=== PATIENT | female | born 1930 | race Caucasian/White ===

== ENCOUNTER 2018-03-01 13:43 | Inpatient (IN) | payer MEDICARE, OTHER ==
[2018-03-01 15:38] LABS: ABNORMAL IP MESSAGE 1; IMMATURE GRANS #M 0.02 10^3/ul; IMMATURE GRANS % (M) 0.3 %; RED CELL DISTRIBUTION WIDTH 16.9 % (11.5-14.5)
[2018-03-01 15:41] LABS: WHITE BLOOD COUNT 7.5 10^3/ul (4.8-10.8)
[2018-03-01 15:41] LABS: MEAN CORPUSCULAR HEMOGLOBIN 28.3 pg (29.0-33.0); MEAN CORPUSCULAR VOLUME 94.4 fl (82.0-101.0); PLATELET COUNT 209 10^3/UL (140-415); RED BLOOD COUNT 2.33 10^6/ul (4.20-5.40)
[2018-03-01 15:45] LABS: ADD MAN DIFF? YES; HEMOGLOBIN 6.6 g/dl (12.0-16.0); PATH REVIEW? YES; POSITIVE DIFF @See below
[2018-03-01 15:55] LABS: ALANINE AMINOTRANSFERASE 9 IU/L (13-69); ALBUMIN 3.6 g/dl (3.3-4.9); ALKALINE PHOSPHATASE 33 IU/L (42-121); ANION GAP 16 (8-16); ASPARTATE AMINO TRANSFERASE 13 IU/L (15-46); BLOOD UREA NITROGEN 33 mg/dl (7-20); CALCIUM 9.3 mg/dl (8.4-10.2); CARBON DIOXIDE 26 mmol/L (21-31); CHLORIDE 106 mmol/L (97-110); CREATININE 1.23 mg/dl (0.44-1.00); GLUCOSE 123 mg/dl (70-220); INR 1.02; POTASSIUM 4.1 mmol/L (3.5-5.1); PROTIME 13.5 Sec (11.9-14.9); PT RATIO 1.1; SODIUM 144 mmol/L (135-144); TOTAL PROTEIN 6.6 g/dl (6.1-8.1)
[2018-03-01 15:56] LABS: PARTIAL THROMBOPLASTIN TIME 34.9 Sec (25.0-35.0)
[2018-03-01 16:11] LABS: BASOPHIL # 0.1 10^3/ul (0.0-0.1); EOSINOPHILS # 0.4 10^3/ul (0.0-0.5); LYMPHOCYTES # 2.4 10^3/ul (0.8-2.9); MONOCYTE # 0.5 10^3/ul (0.3-0.9); MONOCYTES % 7.1 % (0.0-11.0); NEUTROPHIL # 4.1 10^3/ul (1.6-7.5); NEUTROPHILS % 54.4 % (39.0-77.0); NUCLEATED RED BLOOD CELLS% 0.7 /100WBC (0.0-0.0)
[2018-03-01] MEDS ORDERED: DOCUSATE SODIUM 100 MG CAP PO (19:30)
[2018-03-01] MEDS ORDERED: ONDANSETRON 4 MG INJ IV (19:30)
[2018-03-01] MEDS ORDERED: NACL 0.9% 3 ML SYG IV (19:30)
[2018-03-01] MEDS ORDERED: GLUCAGON 1 MG INJ IM (20:00)
[2018-03-01] MEDS ORDERED: GLUCOSE GEL 15 GRAM TUBE BUCCAL (20:00)
[2018-03-01] MEDS ORDERED: GLUCOSE GEL 15 GRAM TUBE PO ×2 (20:00)
[2018-03-01] MEDS ORDERED: DEXTROSE 50% 50 ML SYRINGE IV ×2 (20:00)
[2018-03-01] MEDS: D5W-0.45 NACL + KCL 20 MEQ 1,000 ML IV (20:15)
[2018-03-01] MEDS: INSULIN ASPART [NOVOLOG] 3 ML PEN SC (21:00)
[2018-03-01 23:09] LABS: IMMEDIATE SPIN CROSSMATCH 1 4
[2018-03-02] MEDS: INSULIN ASPART [NOVOLOG] 3 ML PEN SC ×4 (01:00→11:30)
[2018-03-02] MEDS: ACCU-CHEK XX (01:00)
[2018-03-02] MEDS: morphine 2 MG INJ IV (03:17)
[2018-03-02] MEDS: D5W-0.45 NACL + KCL 20 MEQ 1,000 ML IV (05:12)
[2018-03-02] MEDS: PANTOPRAZOLE 40 MG INJ IV (06:07)
[2018-03-02 09:25] LABS: ADD MAN DIFF? NO
[2018-03-02 09:28] LABS: WHITE BLOOD COUNT 7.3 10^3/ul (4.8-10.8)
[2018-03-02 09:28] LABS: BASOPHIL # 0.1 10^3/ul (0.0-0.1); BASOPHILS % 0.7 % (0.0-2.0); EOSINOPHILS # 0.3 10^3/ul (0.0-0.5); EOSINOPHILS % 3.6 % (0.0-7.0); HEMATOCRIT 27.9 % (37.0-47.0); HEMOGLOBIN 8.9 g/dl (12.0-16.0); IMMATURE GRANS #M 0.01 10^3/ul; IMMATURE GRANS % (M) 0.1 %; LYMPHOCYTES # 1.1 10^3/ul (0.8-2.9); LYMPHOCYTES % 15.6 % (15.0-51.0); MEAN CORPUSCULAR HEMOGLOBIN 28.7 pg (29.0-33.0); MEAN CORPUSCULAR HGB CONC 31.9 g/dl (32.0-37.0); MEAN PLATELET VOLUME 10.3 fl (7.4-10.4); MONOCYTE # 0.5 10^3/ul (0.3-0.9); MONOCYTES % 6.1 % (0.0-11.0); NEUTROPHIL # 5.4 10^3/ul (1.6-7.5); NEUTROPHILS % 73.9 % (39.0-77.0); PLATELET COUNT 202 10^3/UL (140-415); RED CELL DISTRIBUTION WIDTH 16.6 % (11.5-14.5)
[2018-03-02 10:05] LABS: IRON 151 ug/dl (35-150)
[2018-03-02 10:10] LABS: ANION GAP 12 (8-16); BLOOD UREA NITROGEN 23 mg/dl (7-20); CALCIUM 8.6 mg/dl (8.4-10.2); CARBON DIOXIDE 24 mmol/L (21-31); CHLORIDE 109 mmol/L (97-110); CREATININE 0.95 mg/dl (0.44-1.00); GLUCOSE 128 mg/dl (70-220); MAGNESIUM 1.8 mg/dl (1.7-2.5); PHOSPHORUS 3.7 mg/dl (2.5-4.9); POTASSIUM 3.4 mmol/L (3.5-5.1); SODIUM 142 mmol/L (135-144)
[2018-03-02 10:22] LABS: % IRON SATURATION 45 % SAT (22-52); TOTAL IRON BINDING CAPACITY 338 ug/dl (241-421)
[2018-03-02 10:37] LABS: FERRITIN 12.3 ng/ml (11.1-264.0)
[2018-03-02 15:51] LABS: HEMOGLOBIN A1C 5.4 % (0-5.9)
== END 2018-03-02 15:19 | disposition home or self-care (01) | DRG 812 ==
LOC: E/R 13:43 → 6WM 16:34
PROC: 30233N1 Transfusion of Nonautologous Red Blood Cells into Peripheral Vein, Percutaneous Approach (ICD-10-PCS; principal; 2018-03-01)
DX: D50.9 Iron deficiency anemia, unspecified (principal); I25.10 Atherosclerotic heart disease of native coronary artery without angina pectoris; I35.0 Nonrheumatic aortic (valve) stenosis; I27.20 Pulmonary hypertension, unspecified; N18.9 Chronic kidney disease, unspecified; F03.90 Unspecified dementia, unspecified severity, without behavioral disturbance, psychotic disturbance, mood disturbance, and anxiety; Z95.1 Presence of aortocoronary bypass graft; Z79.82 Long term (current) use of aspirin
CPT/HCPCS: 36415; 36430; 80048; 80053; 82728; 82962; 83036; 83540; 83735; 84100; 85025; 85610; 85730; 86850; 86900; 86901; 86920; 93005; 99285-25

== ENCOUNTER 2018-03-29 13:26 | Inpatient (IN) | payer MEDICARE, OTHER ==
[2018-03-29 15:07] LABS: ADD MAN DIFF? NO
[2018-03-29 15:13] LABS: BASOPHILS % 0.6 % (0.0-2.0); EOSINOPHILS # 0.3 10^3/ul (0.0-0.5); EOSINOPHILS % 4.3 % (0.0-7.0); HEMATOCRIT 23.8 % (37.0-47.0); HEMOGLOBIN 7.3 g/dl (12.0-16.0); LYMPHOCYTES # 2.2 10^3/ul (0.8-2.9); LYMPHOCYTES % 32.8 % (15.0-51.0); MEAN CORPUSCULAR HEMOGLOBIN 28.1 pg (29.0-33.0); MEAN CORPUSCULAR HGB CONC 30.7 g/dl (32.0-37.0); MEAN CORPUSCULAR VOLUME 91.5 fl (82.0-101.0); MEAN PLATELET VOLUME 10.4 fl (7.4-10.4); MONOCYTE # 0.5 10^3/ul (0.3-0.9); MONOCYTES % 7.8 % (0.0-11.0); NEUTROPHIL # 3.7 10^3/ul (1.6-7.5); NEUTROPHILS % 54.2 % (39.0-77.0); PLATELET COUNT 248 10^3/UL (140-415); RED CELL DISTRIBUTION WIDTH 15.6 % (11.5-14.5)
[2018-03-29 15:13] LABS: WHITE BLOOD COUNT 6.8 10^3/ul (4.8-10.8)
[2018-03-29 15:40] LABS: INR 1.03; PARTIAL THROMBOPLASTIN TIME 35.9 Sec (25.0-35.0); PROTIME 13.6 Sec (11.9-14.9); PT RATIO 1.1
[2018-03-29 15:46] LABS: ALANINE AMINOTRANSFERASE 18 IU/L (13-69); ALBUMIN 3.6 g/dl (3.3-4.9); ALBUMIN/GLOBULIN RATIO 1.16; ALKALINE PHOSPHATASE 38 IU/L (42-121); ANION GAP 14 (8-16); ASPARTATE AMINO TRANSFERASE 19 IU/L (15-46); BILIRUBIN,INDIRECT 0.2 mg/dl (0-1.1); BILIRUBIN,TOTAL 0.2 mg/dl (0.2-1.3); BLOOD UREA NITROGEN 23 mg/dl (7-20); CALCIUM 8.3 mg/dl (8.4-10.2); CARBON DIOXIDE 21 mmol/L (21-31); CHLORIDE 111 mmol/L (97-110); CREATININE 1.25 mg/dl (0.44-1.00); GLUCOSE 107 mg/dl (70-220); POTASSIUM 3.6 mmol/L (3.5-5.1); SODIUM 142 mmol/L (135-144); TOTAL PROTEIN 6.7 g/dl (6.1-8.1)
[2018-03-29 15:57] LABS: TROPONIN-I < 0.012 ng/ml (0.000-0.120)
[2018-03-29 16:54] LABS: RETICULOCYTE COUNT # 0.115 X10^6 (0.020-0.110); RETICULOCYTE COUNT % 4.4 % (0.5-1.5)
[2018-03-29 16:54] LABS: RETICULOCYTE RBC 2.61
[2018-03-29 17:00] LABS: LACTATE DEHYDROGENASE 459 IU/L (313-618)
[2018-03-29] MEDS ORDERED: NACL 0.9% 3 ML SYG IV (17:00)
[2018-03-29] MEDS ORDERED: DOCUSATE SODIUM 100 MG CAP PO (17:00)
[2018-03-29] MEDS ORDERED: MAGNESIUM HYDROXIDE 30ML CUP PO (17:00)
[2018-03-29] MEDS ORDERED: ONDANSETRON 4 MG INJ IV (17:00)
[2018-03-29] MEDS ORDERED: BISACODYL (EC) 5 MG TAB PO ×2 (17:00)
[2018-03-29 17:06] LABS: TOTAL IRON BINDING CAPACITY 328 ug/dl (241-421)
[2018-03-29 17:12] LABS: % IRON SATURATION 9 % SAT (22-52); IRON 29 ug/dl (35-150)
[2018-03-29] MEDS ORDERED: GLUCAGON 1 MG INJ IM (17:30)
[2018-03-29] MEDS ORDERED: GLUCOSE GEL 15 GRAM TUBE PO ×2 (17:30)
[2018-03-29] MEDS ORDERED: GLUCOSE GEL 15 GRAM TUBE BUCCAL (17:30)
[2018-03-29] MEDS ORDERED: DEXTROSE 50% 50 ML SYRINGE IV ×2 (17:30)
[2018-03-29 17:35] LABS: FERRITIN 9.3 ng/ml (11.1-264.0)
[2018-03-29] MEDS: INSULIN ASPART [NOVOLOG] 3 ML PEN SC ×2 (18:00→22:10)
[2018-03-29] MEDS: SOD CHLORIDE 0.9% 1,000 ML IV (18:10)
[2018-03-29] MEDS: ARFORMOTEROL TARTRATE 15MCG/2 ML AMP INH (20:45)
[2018-03-29] MEDS: BUDESONIDE (NEB) 0.5MG/2ML AMP INH (20:45)
[2018-03-29] MEDS ORDERED: MEGESTROL 40 MG TAB PO (21:00)
[2018-03-29] MEDS: MEGESTROL 40 MG TAB PO (22:04)
[2018-03-29] MEDS: QUETIAPINE 25 MG TAB PO (22:04)
[2018-03-29] MEDS: DOCUSATE SODIUM 250 MG CAP PO (22:05)
[2018-03-29] MEDS: ATORVASTATIN 10 MG TAB PO (22:07)
[2018-03-29] MEDS: CALCIUM CARBONATE 1.25 GM TAB PO (22:08)
[2018-03-30] MEDS: ACCU-CHEK XX (01:53)
[2018-03-30] MEDS: ACETAMINOPHEN 325 MG TAB PO (02:52)
[2018-03-30] MEDS: PANTOPRAZOLE (EC) 40 MG TAB PO (05:36)
[2018-03-30] MEDS: traMADol 50 MG TAB PO ×2 (05:37→10:59)
[2018-03-30 07:41] LABS: ADD MAN DIFF? NO
[2018-03-30 07:50] LABS: BASOPHIL # 0.1 10^3/ul (0.0-0.1); BASOPHILS % 0.7 % (0.0-2.0); EOSINOPHILS # 0.2 10^3/ul (0.0-0.5); EOSINOPHILS % 3.2 % (0.0-7.0); HEMATOCRIT 26.5 % (37.0-47.0); HEMOGLOBIN 8.2 g/dl (12.0-16.0); LYMPHOCYTES # 1.9 10^3/ul (0.8-2.9); LYMPHOCYTES % 26.8 % (15.0-51.0); MEAN CORPUSCULAR HEMOGLOBIN 27.9 pg (29.0-33.0); MEAN CORPUSCULAR HGB CONC 30.9 g/dl (32.0-37.0); MEAN CORPUSCULAR VOLUME 90.1 fl (82.0-101.0); MEAN PLATELET VOLUME 9.9 fl (7.4-10.4); MONOCYTE # 0.6 10^3/ul (0.3-0.9); MONOCYTES % 7.9 % (0.0-11.0); NEUTROPHIL # 4.3 10^3/ul (1.6-7.5); NEUTROPHILS % 61.1 % (39.0-77.0); PLATELET COUNT 209 10^3/UL (140-415); RED BLOOD COUNT 2.94 10^6/ul (4.20-5.40); RED CELL DISTRIBUTION WIDTH 15.9 % (11.5-14.5)
[2018-03-30 07:50] LABS: WHITE BLOOD COUNT 7.1 10^3/ul (4.8-10.8)
[2018-03-30] MEDS: ARFORMOTEROL TARTRATE 15MCG/2 ML AMP INH ×2 (07:57→20:00)
[2018-03-30] MEDS: BUDESONIDE (NEB) 0.5MG/2ML AMP INH ×2 (07:57→20:29)
[2018-03-30] MEDS: INSULIN ASPART [NOVOLOG] 3 ML PEN SC ×4 (08:00→20:53)
[2018-03-30] MEDS: ASCORBIC ACID 500 MG TAB PO (08:51)
[2018-03-30] MEDS: ASPIRIN 81 MG TAB PO (08:51)
[2018-03-30] MEDS: CALCIUM CARBONATE 1.25 GM TAB PO ×2 (08:51→20:50)
[2018-03-30] MEDS: LOSARTAN 25 MG TAB PO (08:52)
[2018-03-30] MEDS: ISOSORBIDE MONONITRATE(SR)30 MG TAB PO (08:53)
[2018-03-30] MEDS: SPIRONOLACTONE 25 MG TAB PO (08:53)
[2018-03-30] MEDS: QUETIAPINE 25 MG TAB PO ×2 (08:54→20:50)
[2018-03-30] MEDS: DULOXETINE 30 MG CAP DR PO (08:54)
[2018-03-30] MEDS: DOCUSATE SODIUM 250 MG CAP PO ×2 (08:54→20:50)
[2018-03-30] MEDS: MEGESTROL 40 MG TAB PO ×2 (08:54→20:50)
[2018-03-30] MEDS: MEMANTINE 10 MG TAB PO (08:54)
[2018-03-30] MEDS: FUROSEMIDE 40 MG TAB PO (08:54)
[2018-03-30] MEDS: OLOPATADINE 0.2% (ONCE A DAY) OPHTH DROP 2.5 ML BOTH EYES (08:55)
[2018-03-30 08:59] LABS: ALANINE AMINOTRANSFERASE 14 IU/L (13-69); ALBUMIN 3.2 g/dl (3.3-4.9); ALBUMIN/GLOBULIN RATIO 1.14; ALKALINE PHOSPHATASE 36 IU/L (42-121); ANION GAP 10 (8-16); ASPARTATE AMINO TRANSFERASE 17 IU/L (15-46); BILIRUBIN,INDIRECT 0.5 mg/dl (0-1.1); BILIRUBIN,TOTAL 0.5 mg/dl (0.2-1.3); BLOOD UREA NITROGEN 16 mg/dl (7-20); CALCIUM 8.3 mg/dl (8.4-10.2); CARBON DIOXIDE 21 mmol/L (21-31); CHLORIDE 114 mmol/L (97-110); GLUCOSE 96 mg/dl (70-220); MAGNESIUM 2.1 mg/dl (1.7-2.5); POTASSIUM 3.8 mmol/L (3.5-5.1); SODIUM 141 mmol/L (135-144)
[2018-03-30 09:26] LABS: HEMOGLOBIN A1C 5.3 % (0-5.9)
[2018-03-30] MEDS: SOD CHLORIDE 0.9% 100 ML (14:16)
[2018-03-30] MEDS: IODIXANOL LOCM 100 ML BTL (14:17)
[2018-03-30 14:39] LABS: IMMEDIATE SPIN CROSSMATCH 1 2
[2018-03-30] MEDS: BISACODYL (EC) 5 MG TAB PO (15:15)
[2018-03-30] MEDS: DIGOXIN 0.125 MG TAB PO (15:16)
[2018-03-30] MEDS: MAGNESIUM CITRATE 300 ML BTL PO (17:43)
[2018-03-30] MEDS: POLYETHYLENE GLYCOL 3350 119 GM POWDER PO (18:30)
[2018-03-30 19:26] LABS: TROPONIN-I < 0.012 ng/ml (0.000-0.120)
[2018-03-30] MEDS: ATORVASTATIN 10 MG TAB PO (20:50)
[2018-03-31 01:50] LABS: TROPONIN-I < 0.012 ng/ml (0.000-0.120)
[2018-03-31] MEDS: ACCU-CHEK XX (02:00)
[2018-03-31] MEDS: DEXTROSE 5%-0.45% NACL 1,000 ML IV (03:10)
[2018-03-31] MEDS: PANTOPRAZOLE (EC) 40 MG TAB PO (06:00)
[2018-03-31] MEDS: POLYETHYLENE GLYCOL 3350 119 GM POWDER PO (06:20)
[2018-03-31] MEDS ORDERED: LIDOCAINE 100 MG SYRINGE (07:00)
[2018-03-31 07:57] LABS: ADD MAN DIFF? NO
[2018-03-31 07:59] LABS: BASOPHILS % 0.6 % (0.0-2.0); EOSINOPHILS # 0.3 10^3/ul (0.0-0.5); EOSINOPHILS % 4.2 % (0.0-7.0); HEMATOCRIT 28.9 % (37.0-47.0); HEMOGLOBIN 9.2 g/dl (12.0-16.0); LYMPHOCYTES # 1.8 10^3/ul (0.8-2.9); LYMPHOCYTES % 28.1 % (15.0-51.0); MEAN CORPUSCULAR HEMOGLOBIN 27.7 pg (29.0-33.0); MEAN CORPUSCULAR HGB CONC 31.8 g/dl (32.0-37.0); MEAN PLATELET VOLUME 9.9 fl (7.4-10.4); MONOCYTE # 0.5 10^3/ul (0.3-0.9); MONOCYTES % 8.1 % (0.0-11.0); NEUTROPHIL # 3.8 10^3/ul (1.6-7.5); NEUTROPHILS % 58.7 % (39.0-77.0); PLATELET COUNT 230 10^3/UL (140-415); RED BLOOD COUNT 3.32 10^6/ul (4.20-5.40); RED CELL DISTRIBUTION WIDTH 15.5 % (11.5-14.5)
[2018-03-31 07:59] LABS: WHITE BLOOD COUNT 6.4 10^3/ul (4.8-10.8)
[2018-03-31] MEDS: INSULIN ASPART [NOVOLOG] 3 ML PEN SC ×4 (08:00→20:38)
[2018-03-31] MEDS: BUDESONIDE (NEB) 0.5MG/2ML AMP INH ×2 (08:28→21:25)
[2018-03-31] MEDS: ARFORMOTEROL TARTRATE 15MCG/2 ML AMP INH ×2 (08:28→21:25)
[2018-03-31] MEDS: BISACODYL (EC) 5 MG TAB PO (08:44)
[2018-03-31] MEDS: MEMANTINE 10 MG TAB PO (08:53)
[2018-03-31] MEDS: DULOXETINE 30 MG CAP DR PO (08:53)
[2018-03-31 08:54] LABS: CHOLESTEROL 101 mg/dl (100-200)
[2018-03-31 08:54] LABS: CHOL/HDL RATIO 4.2 RATIO; HDL CHOLESTEROL 24 mg/dl (33-92); LDL CHOLESTEROL,CALCULATED 58 mg/dl; TRIGLYCERIDES 95 mg/dl (0-149)
[2018-03-31] MEDS: ASCORBIC ACID 500 MG TAB PO (08:54)
[2018-03-31] MEDS: CALCIUM CARBONATE 1.25 GM TAB PO ×2 (08:54→21:16)
[2018-03-31] MEDS: SPIRONOLACTONE 25 MG TAB PO (08:54)
[2018-03-31] MEDS: LOSARTAN 25 MG TAB PO (08:54)
[2018-03-31] MEDS: ISOSORBIDE MONONITRATE(SR)30 MG TAB PO (08:54)
[2018-03-31] MEDS: FUROSEMIDE 40 MG TAB PO (08:54)
[2018-03-31] MEDS: OLOPATADINE 0.2% (ONCE A DAY) OPHTH DROP 2.5 ML BOTH EYES (08:55)
[2018-03-31 08:56] LABS: ANION GAP 10 (8-16); BLOOD UREA NITROGEN 13 mg/dl (7-20); CALCIUM 8.9 mg/dl (8.4-10.2); CARBON DIOXIDE 25 mmol/L (21-31); CHLORIDE 111 mmol/L (97-110); CREATININE 0.96 mg/dl (0.44-1.00); GLUCOSE 99 mg/dl (70-220); MAGNESIUM 2.3 mg/dl (1.7-2.5); PHOSPHORUS 3.2 mg/dl (2.5-4.9); POTASSIUM 3.2 mmol/L (3.5-5.1); SODIUM 143 mmol/L (135-144)
[2018-03-31 09:00] LABS: URIC ACID 6.3 mg/dl (3.1-7.9)
[2018-03-31] MEDS: ASPIRIN 81 MG TAB PO (09:00)
[2018-03-31] MEDS: MEGESTROL 40 MG TAB PO ×2 (09:00→21:16)
[2018-03-31] MEDS: QUETIAPINE 25 MG TAB PO ×2 (09:00→21:17)
[2018-03-31] MEDS: DOCUSATE SODIUM 250 MG CAP PO ×2 (09:00→21:00)
[2018-03-31 09:06] LABS: TROPONIN-I < 0.012 ng/ml (0.000-0.120)
[2018-03-31] MEDS: DIGOXIN 0.125 MG TAB PO (13:00)
[2018-03-31] MEDS: POTASSIUM CHLORIDE 100 ML IVPB ×3 (13:21→15:00)
[2018-03-31 13:40] LABS: OCCULT BLOOD STOOL NEGATIVE (NEGATIVE)
[2018-03-31 16:47] LABS: HAPTOGLOBIN 262 mg/dL (43-212)
[2018-03-31] MEDS: FENTAnyl 50 MCG/ML VIAL (17:20)
[2018-03-31] MEDS: PROPOFOL 40 ML (17:20)
[2018-03-31] MEDS: ATORVASTATIN 10 MG TAB PO (21:16)
[2018-04-01] MEDS: POTASSIUM CHLORIDE 100 ML IVPB
[2018-04-01] MEDS: ACCU-CHEK XX (02:00)
[2018-04-01 05:40] LABS: ADD MAN DIFF? NO
[2018-04-01 05:41] LABS: BASOPHIL # 0.1 10^3/ul (0.0-0.1); BASOPHILS % 0.6 % (0.0-2.0); EOSINOPHILS # 0.3 10^3/ul (0.0-0.5); EOSINOPHILS % 3.8 % (0.0-7.0); HEMATOCRIT 29.1 % (37.0-47.0); HEMOGLOBIN 9.3 g/dl (12.0-16.0); LYMPHOCYTES # 2.4 10^3/ul (0.8-2.9); MEAN CORPUSCULAR HEMOGLOBIN 28.1 pg (29.0-33.0); MEAN CORPUSCULAR VOLUME 87.9 fl (82.0-101.0); MEAN PLATELET VOLUME 9.8 fl (7.4-10.4); MONOCYTE # 0.7 10^3/ul (0.3-0.9); MONOCYTES % 8.1 % (0.0-11.0); NEUTROPHIL # 4.8 10^3/ul (1.6-7.5); NEUTROPHILS % 58.1 % (39.0-77.0); PLATELET COUNT 239 10^3/UL (140-415); RED BLOOD COUNT 3.31 10^6/ul (4.20-5.40); RED CELL DISTRIBUTION WIDTH 15.4 % (11.5-14.5)
[2018-04-01 05:41] LABS: WHITE BLOOD COUNT 8.3 10^3/ul (4.8-10.8)
[2018-04-01] MEDS: PANTOPRAZOLE (EC) 40 MG TAB PO (06:37)
[2018-04-01 06:42] LABS: ANION GAP 12 (8-16); BLOOD UREA NITROGEN 10 mg/dl (7-20); CALCIUM 9.2 mg/dl (8.4-10.2); CARBON DIOXIDE 24 mmol/L (21-31); CHLORIDE 112 mmol/L (97-110); CREATININE 1.02 mg/dl (0.44-1.00); GLUCOSE 92 mg/dl (70-220); MAGNESIUM 2.1 mg/dl (1.7-2.5); PHOSPHORUS 3.9 mg/dl (2.5-4.9); POTASSIUM 4.3 mmol/L (3.5-5.1); SODIUM 144 mmol/L (135-144)
[2018-04-01] MEDS: BUDESONIDE (NEB) 0.5MG/2ML AMP INH (08:00)
[2018-04-01] MEDS: INSULIN ASPART [NOVOLOG] 3 ML PEN SC ×2 (08:00→12:00)
[2018-04-01] MEDS: ARFORMOTEROL TARTRATE 15MCG/2 ML AMP INH (08:49)
[2018-04-01] MEDS: CALCIUM CARBONATE 1.25 GM TAB PO (09:33)
[2018-04-01] MEDS: ASCORBIC ACID 500 MG TAB PO (09:33)
[2018-04-01] MEDS: DULOXETINE 30 MG CAP DR PO (09:33)
[2018-04-01] MEDS: ASPIRIN 81 MG TAB PO (09:33)
[2018-04-01] MEDS: MEMANTINE 10 MG TAB PO (09:34)
[2018-04-01] MEDS: QUETIAPINE 25 MG TAB PO (09:34)
[2018-04-01] MEDS: MEGESTROL 40 MG TAB PO (09:34)
[2018-04-01] MEDS: FUROSEMIDE 40 MG TAB PO (09:34)
[2018-04-01] MEDS: DOCUSATE SODIUM 250 MG CAP PO (09:34)
[2018-04-01] MEDS: ISOSORBIDE MONONITRATE(SR)30 MG TAB PO (09:35)
[2018-04-01] MEDS: LOSARTAN 25 MG TAB PO (09:35)
[2018-04-01] MEDS: OLOPATADINE 0.2% (ONCE A DAY) OPHTH DROP 2.5 ML BOTH EYES (09:36)
[2018-04-01] MEDS: SPIRONOLACTONE 25 MG TAB PO (09:36)
[2018-04-01] MEDS ORDERED: DOCUSATE SODIUM 100 MG CAP PO (13:30)
== END 2018-04-01 15:30 | disposition home or self-care (01) | DRG 812 ==
LOC: E/R 13:26 → 2NE 15:58
PROVIDERS: Internal Medicine; Pediatrics Neonatal-Perinatal Medicine
PROC: 0DB68ZX Excision of Stomach, Via Natural or Artificial Opening Endoscopic, Diagnostic (ICD-10-PCS; principal; 2018-03-31 16:30)
PROC: 0DJD8ZZ Inspection of Lower Intestinal Tract, Via Natural or Artificial Opening Endoscopic (ICD-10-PCS; 2018-03-31 16:30)
PROC: 30233N1 Transfusion of Nonautologous Red Blood Cells into Peripheral Vein, Percutaneous Approach (ICD-10-PCS; 2018-03-31 16:30)
DX: D50.9 Iron deficiency anemia, unspecified (principal); N17.9 Acute kidney failure, unspecified; I25.10 Atherosclerotic heart disease of native coronary artery without angina pectoris; I35.0 Nonrheumatic aortic (valve) stenosis; F41.9 Anxiety disorder, unspecified; F32.9 Major depressive disorder, single episode, unspecified; F03.90 Unspecified dementia, unspecified severity, without behavioral disturbance, psychotic disturbance, mood disturbance, and anxiety; E11.9 Type 2 diabetes mellitus without complications; J44.9 Chronic obstructive pulmonary disease, unspecified; G89.29 Other chronic pain; E78.5 Hyperlipidemia, unspecified; K29.70 Gastritis, unspecified, without bleeding; M25.562 Pain in left knee; M25.561 Pain in right knee; K57.30 Diverticulosis of large intestine without perforation or abscess without bleeding; K64.8 Other hemorrhoids; I27.20 Pulmonary hypertension, unspecified; Z79.82 Long term (current) use of aspirin; Z95.5 Presence of coronary angioplasty implant and graft
CPT/HCPCS: 36415; 36430; 71045; 73562-50; 74177; 80048; 80053; 80061; 82270; 82728; 82962; 83010; 83036; 83540; 83615; 83735; 84100; 84443; 84484; 84560; 85025; 85045; 85610; 85730; 86850; 86900; 86901; 86920; 88305; 88312; 93005; 93306; 93970; 94640; 94664; 99285-25; G0378

== ENCOUNTER 2018-06-10 02:32 | Inpatient (IN) | payer MEDICARE, OTHER ==
[2018-06-10 03:20] LABS: ABNORMAL IP MESSAGE 1; HEMATOCRIT 18.6 % (37.0-47.0); MEAN CORPUSCULAR HEMOGLOBIN 29.6 pg (29.0-33.0); MEAN CORPUSCULAR HGB CONC 30.1 g/dl (32.0-37.0); MEAN CORPUSCULAR VOLUME 98.4 fl (82.0-101.0); MEAN PLATELET VOLUME 10.2 fl (7.4-10.4); PLATELET COUNT 192 10^3/UL (140-415); RED BLOOD COUNT 1.89 10^6/ul (4.20-5.40); RED CELL DISTRIBUTION WIDTH 17.4 % (11.5-14.5)
[2018-06-10 03:20] LABS: WHITE BLOOD COUNT 8.5 10^3/ul (4.8-10.8)
[2018-06-10 03:22] LABS: ADD MAN DIFF? YES; POSITIVE DIFF @See below
[2018-06-10 03:23] LABS: HEMOGLOBIN 5.6 g/dl (12.0-16.0)
[2018-06-10 03:38] LABS: ALANINE AMINOTRANSFERASE 15 IU/L (13-69); ALBUMIN 3.2 g/dl (3.3-4.9); ALBUMIN/GLOBULIN RATIO 1.18; ALKALINE PHOSPHATASE 36 IU/L (42-121); ANION GAP 11 (5-13); ASPARTATE AMINO TRANSFERASE 11 IU/L (15-46); BILIRUBIN,INDIRECT 0.2 mg/dl (0-1.1); BILIRUBIN,TOTAL 0.2 mg/dl (0.2-1.3); BLOOD UREA NITROGEN 23 mg/dl (7-20); CALCIUM 8.2 mg/dl (8.4-10.2); CARBON DIOXIDE 21 mmol/L (21-31); CHLORIDE 109 mmol/L (97-110); CREATININE 1.23 mg/dl (0.44-1.00); GLUCOSE 128 mg/dl (70-220); POTASSIUM 3.2 mmol/L (3.5-5.1); SODIUM 141 mmol/L (135-144); TOTAL PROTEIN 5.9 g/dl (6.1-8.1)
[2018-06-10 03:40] LABS: INR 1.08; PROTIME 14.1 Sec (11.9-14.9); PT RATIO 1.1
[2018-06-10 03:41] LABS: PARTIAL THROMBOPLASTIN TIME 32.8 Sec (23.0-35.0)
[2018-06-10 03:49] LABS: TROPONIN-I < 0.012 ng/ml (0.000-0.120)
[2018-06-10] MEDS ORDERED: ONDANSETRON 4 MG INJ IV ×2 (04:00→06:30)
[2018-06-10] MEDS ORDERED: ACETAMINOPHEN 325 MG TAB PO ×2 (04:00→06:30)
[2018-06-10 04:04] LABS: ANISOCYTOSIS 1+ (0-0); BAND NEUTROPHILS #M 0.2 10^3/ul (0.0-0.6); BAND NEUTROPHILS % (M) 3 % (0-4); BASOPHIL #M 0.2 10^3/ul (0.0-0.0); BASOPHILS % (M) 3 % (0-2); EOSINOPHILS % (M) 1 % (0-7); LYMPHOCYTES #M 1.7 10^3/ul (0.8-2.9); LYMPHOCYTES % (M) 21 % (15-51); MONOCYTE #M 0.4 10^3/ul (0.3-0.9); MONOCYTES % (M) 5 % (0-11); MYELOCYTES % (M) 1 % (0-0); PLATELET ESTIMATE NORMAL; POLYCHROMASIA 1+ (0-0); PROMYELOCYTES % (M) 1 % (0-0); SEG NEUT #M 5.5 10^3/ul (1.6-7.5); SEGMENTED NEUTROPHILS (M) % 65 % (39-77); SMUDGE%M 15 % (0-0)
[2018-06-10] MEDS: morphine 4 MG/ML VIAL IV (04:08)
[2018-06-10] MEDS: ONDANSETRON 4 MG INJ IV (04:08)
[2018-06-10] MEDS ORDERED: NACL 0.9% 3 ML SYG IV (06:30)
[2018-06-10] MEDS ORDERED: BISACODYL (EC) 5 MG TAB PO (06:30)
[2018-06-10] MEDS ORDERED: ALBUTEROL HFA 8 GM INHALER INH (06:30)
[2018-06-10] MEDS ORDERED: ACETAMINOPHEN/CODEINE #3 TAB PO (06:30)
[2018-06-10 07:53] LABS: IMMEDIATE SPIN CROSSMATCH 1 4
[2018-06-10] MEDS ORDERED: ASPIRIN (EC) 81 MG TAB PO (09:00)
[2018-06-10] MEDS: ISOSORBIDE MONONITRATE(SR)30 MG TAB PO (09:00)
[2018-06-10] MEDS: LOSARTAN 25 MG TAB PO (09:00)
[2018-06-10] MEDS: LINAGLIPTIN 5 MG TABLET PO (09:02)
[2018-06-10] MEDS: DULOXETINE 30 MG CAP DR PO (09:03)
[2018-06-10] MEDS: MEMANTINE 10 MG TAB PO (09:03)
[2018-06-10] MEDS: PANTOPRAZOLE (EC) 40 MG TAB PO (09:03)
[2018-06-10] MEDS: DOCUSATE SODIUM 250 MG CAP PO ×2 (09:03→20:25)
[2018-06-10] MEDS: MEGESTROL 40 MG TAB PO ×2 (09:03→20:25)
[2018-06-10] MEDS: FUROSEMIDE 20 MG TAB PO (09:03)
[2018-06-10] MEDS: SOD CHLORIDE 0.9% 250 ML IV (09:05)
[2018-06-10] MEDS: ARFORMOTEROL TARTRATE 15MCG/2 ML AMP INH ×2 (10:06→19:52)
[2018-06-10] MEDS: BUDESONIDE (NEB) 0.5MG/2ML AMP INH ×2 (10:06→20:02)
[2018-06-10] MEDS: OLOPATADINE 0.2% (ONCE A DAY) OPHTH DROP 2.5 ML BOTH EYES (11:58)
[2018-06-10] MEDS: QUETIAPINE 25 MG TAB PO ×2 (11:58→20:25)
[2018-06-10] MEDS: POTASSIUM CHLORIDE (SR) 20 MEQ TAB PO (11:58)
[2018-06-10] MEDS: TRIHEXYPHENIDYL 5 MG TAB PO (12:03)
[2018-06-10] MEDS: DIGOXIN 0.125 MG TAB PO (12:49)
[2018-06-10] MEDS: SPIRONOLACTONE (5 MG/ML PO SYG) PO (12:50)
[2018-06-10] MEDS: SOD FERRIC GLUC COMPLX 125 MG in SOD CHLORIDE 0.9% 100 ML IVPB (16:50)
[2018-06-10] MEDS: ASPIRIN (EC) 81 MG TAB PO (17:50)
[2018-06-10] MEDS: ATORVASTATIN 10 MG TAB PO (20:25)
[2018-06-11] MEDS: PANTOPRAZOLE (EC) 40 MG TAB PO (06:17)
[2018-06-11 07:37] LABS: ADD MAN DIFF? NO
[2018-06-11 07:44] LABS: WHITE BLOOD COUNT 8.1 10^3/ul (4.8-10.8)
[2018-06-11 07:44] LABS: BASOPHILS % 0.4 % (0.0-2.0); EOSINOPHILS # 0.3 10^3/ul (0.0-0.5); EOSINOPHILS % 3.1 % (0.0-7.0); HEMATOCRIT 24.1 % (37.0-47.0); HEMOGLOBIN 7.6 g/dl (12.0-16.0); LYMPHOCYTES # 1.8 10^3/ul (0.8-2.9); LYMPHOCYTES % 22.6 % (15.0-51.0); MEAN CORPUSCULAR HEMOGLOBIN 30.4 pg (29.0-33.0); MEAN CORPUSCULAR HGB CONC 31.5 g/dl (32.0-37.0); MEAN CORPUSCULAR VOLUME 96.4 fl (82.0-101.0); MEAN PLATELET VOLUME 10.5 fl (7.4-10.4); MONOCYTE # 0.5 10^3/ul (0.3-0.9); MONOCYTES % 6.5 % (0.0-11.0); NEUTROPHIL # 5.4 10^3/ul (1.6-7.5); NEUTROPHILS % 66.9 % (39.0-77.0); PLATELET COUNT 187 10^3/UL (140-415); RED CELL DISTRIBUTION WIDTH 17.5 % (11.5-14.5)
[2018-06-11 08:00] LABS: MAGNESIUM 1.9 mg/dl (1.7-2.5)
[2018-06-11 08:05] LABS: ANION GAP 11 (5-13); BLOOD UREA NITROGEN 25 mg/dl (7-20); CALCIUM 8.8 mg/dl (8.4-10.2); CARBON DIOXIDE 24 mmol/L (21-31); CHLORIDE 107 mmol/L (97-110); CREATININE 1.09 mg/dl (0.44-1.00); GLUCOSE 99 mg/dl (70-220); POTASSIUM 4.5 mmol/L (3.5-5.1); SODIUM 142 mmol/L (135-144)
[2018-06-11] MEDS: LOSARTAN 25 MG TAB PO (09:00)
[2018-06-11] MEDS: TRIHEXYPHENIDYL 5 MG TAB PO ×2 (09:00→20:59)
[2018-06-11] MEDS: DULOXETINE 30 MG CAP DR PO (09:03)
[2018-06-11] MEDS: MEGESTROL 40 MG TAB PO ×2 (09:03→20:37)
[2018-06-11] MEDS: MEMANTINE 10 MG TAB PO (09:03)
[2018-06-11] MEDS: DOCUSATE SODIUM 250 MG CAP PO ×2 (09:04→20:37)
[2018-06-11] MEDS: FUROSEMIDE 20 MG TAB PO (09:04)
[2018-06-11] MEDS: ISOSORBIDE MONONITRATE(SR)30 MG TAB PO (09:04)
[2018-06-11] MEDS: ASPIRIN (EC) 81 MG TAB PO (09:04)
[2018-06-11] MEDS: SPIRONOLACTONE (5 MG/ML PO SYG) PO (09:05)
[2018-06-11] MEDS: QUETIAPINE 25 MG TAB PO ×2 (09:05→20:37)
[2018-06-11] MEDS: OLOPATADINE 0.2% (ONCE A DAY) OPHTH DROP 2.5 ML BOTH EYES (09:05)
[2018-06-11] MEDS: LINAGLIPTIN 5 MG TABLET PO (09:20)
[2018-06-11] MEDS: BUDESONIDE (NEB) 0.5MG/2ML AMP INH ×2 (09:41→20:52)
[2018-06-11] MEDS: ARFORMOTEROL TARTRATE 15MCG/2 ML AMP INH ×2 (09:41→20:52)
[2018-06-11] MEDS: DIGOXIN 0.125 MG TAB PO (13:04)
[2018-06-11] MEDS: INFLUENZA VIRUS VACCINE 0.5 ML (DISPENSING) IM* (13:07)
[2018-06-11] MEDS: SOD CHLORIDE 0.9% 250 ML IV* (13:14)
[2018-06-11] MEDS: ATORVASTATIN 10 MG TAB PO (20:37)
[2018-06-11] MEDS: SOD FERRIC GLUC COMPLX 125 MG in SOD CHLORIDE 0.9% 100 ML IVPB (22:18)
== END 2018-06-12 | disposition home or self-care (01) | DRG 812 ==
LOC: E/R 02:32 → PP2 03:48
PROVIDERS: Pediatrics
PROC: 30233N1 Transfusion of Nonautologous Red Blood Cells into Peripheral Vein, Percutaneous Approach (ICD-10-PCS; 2018-06-10)
PROC: 30233N1 Transfusion of Nonautologous Red Blood Cells into Peripheral Vein, Percutaneous Approach (ICD-10-PCS; principal; 2018-06-11)
DX: D50.9 Iron deficiency anemia, unspecified (principal); I08.2 Rheumatic disorders of both aortic and tricuspid valves; J44.9 Chronic obstructive pulmonary disease, unspecified; E78.5 Hyperlipidemia, unspecified; I25.10 Atherosclerotic heart disease of native coronary artery without angina pectoris; F32.9 Major depressive disorder, single episode, unspecified; I12.9 Hypertensive chronic kidney disease with stage 1 through stage 4 chronic kidney disease, or unspecified chronic kidney disease; N18.9 Chronic kidney disease, unspecified; Z95.5 Presence of coronary angioplasty implant and graft
CPT/HCPCS: 36415; 36430; 80048; 80053; 82962; 83735; 84100; 84484; 85025; 85610; 85730; 86850; 86900; 86901; 86920; 90686; 94640; 94664; 99291-25

== ENCOUNTER 2018-06-17 17:52 | Inpatient (IN) | payer MEDICARE, OTHER ==
[2018-06-17 19:58] LABS: OCCULT BLOOD STOOL POSITIVE (NEGATIVE)
[2018-06-17 19:59] LABS: WHITE BLOOD COUNT 8.4 10^3/ul (4.8-10.8)
[2018-06-17 19:59] LABS: ABNORMAL IP MESSAGE 1; HEMATOCRIT 21.1 % (37.0-47.0); MEAN CORPUSCULAR HEMOGLOBIN 30.8 pg (29.0-33.0); MEAN CORPUSCULAR HGB CONC 31.3 g/dl (32.0-37.0); MEAN CORPUSCULAR VOLUME 98.6 fl (82.0-101.0); MEAN PLATELET VOLUME 9.3 fl (7.4-10.4); PLATELET COUNT 229 10^3/UL (140-415); RED BLOOD COUNT 2.14 10^6/ul (4.20-5.40); RED CELL DISTRIBUTION WIDTH 17.6 % (11.5-14.5)
[2018-06-17 20:10] LABS: ADD MAN DIFF? YES; HEMOGLOBIN 6.6 g/dl (12.0-16.0); POSITIVE DIFF @See below
[2018-06-17 20:20] LABS: INR 1.03; PARTIAL THROMBOPLASTIN TIME 31.5 Sec (23.0-35.0); PROTIME 13.6 Sec (11.9-14.9); PT RATIO 1.1
[2018-06-17 20:31] LABS: ALANINE AMINOTRANSFERASE 14 IU/L (13-69); ALBUMIN 3.3 g/dl (3.3-4.9); ALBUMIN/GLOBULIN RATIO 1.17; ALKALINE PHOSPHATASE 34 IU/L (42-121); ANION GAP 12 (5-13); ASPARTATE AMINO TRANSFERASE 13 IU/L (15-46); BILIRUBIN,INDIRECT 0.2 mg/dl (0-1.1); BILIRUBIN,TOTAL 0.2 mg/dl (0.2-1.3); BLOOD UREA NITROGEN 29 mg/dl (7-20); CALCIUM 9.5 mg/dl (8.4-10.2); CARBON DIOXIDE 24 mmol/L (21-31); CHLORIDE 105 mmol/L (97-110); CREATININE 1.07 mg/dl (0.44-1.00); GLUCOSE 123 mg/dl (70-220); POTASSIUM 3.6 mmol/L (3.5-5.1); SODIUM 141 mmol/L (135-144); TOTAL PROTEIN 6.1 g/dl (6.1-8.1)
[2018-06-17 20:38] LABS: ANISOCYTOSIS 1+ (0-0); EOSINOPHILS % (M) 4 % (0-7); GIANT THROMBO% (M) 1 % (0-0); LYMPHOCYTES #M 2.1 10^3/ul (0.8-2.9); LYMPHOCYTES % (M) 25 % (15-51); MICROCYTOSIS 1+ (0-0); MONOCYTE #M 0.1 10^3/ul (0.3-0.9); MONOCYTES % (M) 2 % (0-11); PLATELET ESTIMATE NORMAL; POLYCHROMASIA 2+ (0-0); REACTIVE LYMPHOCYTES #M 0.1 10^3/ul (0.0-0.0); REACTIVE LYMPHOCYTES% (M) 2 % (0-0); SEGMENTED NEUTROPHILS (M) % 67 % (39-77); SMUDGE%M 33 % (0-0)
[2018-06-17 20:42] LABS: TROPONIN-I 0.021 ng/ml (0.000-0.120)
[2018-06-17] MEDS ORDERED: NACL 0.9% 3 ML SYG IV (21:00)
[2018-06-17] MEDS ORDERED: ACETAMINOPHEN 325 MG TAB PO (21:00)
[2018-06-17] MEDS ORDERED: ONDANSETRON 4 MG INJ IV ×2 (21:00)
[2018-06-17 21:29] LABS: IMMEDIATE SPIN CROSSMATCH 1 3
[2018-06-17] MEDS: SOD CHLORIDE 0.9% 250 ML IV (21:40)
[2018-06-17] MEDS: traMADol 50 MG TAB PO (23:46)
[2018-06-17] MEDS: MEMANTINE 10 MG TAB PO (23:46)
[2018-06-18] MEDS: ACETAMINOPHEN 325 MG TAB PO (01:15)
[2018-06-18] MEDS: ALPRAZOLAM 0.5 MG TAB PO (01:57)
[2018-06-18] MEDS: PANTOPRAZOLE (EC) 40 MG TAB PO (05:47)
[2018-06-18] MEDS: DULOXETINE 30 MG CAP DR PO (08:34)
[2018-06-18] MEDS: MEMANTINE 10 MG TAB PO ×2 (08:34→20:55)
[2018-06-18] MEDS: TRIHEXYPHENIDYL 5 MG TAB PO (08:34)
[2018-06-18] MEDS: MEGESTROL 40 MG TAB PO ×2 (08:34→20:54)
[2018-06-18] MEDS: traMADol 50 MG TAB PO ×3 (08:35→20:53)
[2018-06-18] MEDS: ASCORBIC ACID 500 MG TAB PO ×2 (08:35→20:54)
[2018-06-18] MEDS: QUETIAPINE 25 MG TAB PO (08:35)
[2018-06-18] MEDS: OLOPATADINE 0.2% (ONCE A DAY) OPHTH DROP 2.5 ML BOTH EYES (08:37)
[2018-06-18 08:42] LABS: ADD MAN DIFF? NO
[2018-06-18 08:50] LABS: WHITE BLOOD COUNT 8.4 10^3/ul (4.8-10.8)
[2018-06-18 08:50] LABS: BASOPHIL # 0.1 10^3/ul (0.0-0.1); BASOPHILS % 0.6 % (0.0-2.0); EOSINOPHILS # 0.2 10^3/ul (0.0-0.5); EOSINOPHILS % 2.1 % (0.0-7.0); HEMATOCRIT 27.3 % (37.0-47.0); HEMOGLOBIN 8.8 g/dl (12.0-16.0); LYMPHOCYTES # 1.3 10^3/ul (0.8-2.9); LYMPHOCYTES % 15.8 % (15.0-51.0); MEAN CORPUSCULAR HEMOGLOBIN 29.8 pg (29.0-33.0); MEAN CORPUSCULAR HGB CONC 32.2 g/dl (32.0-37.0); MEAN CORPUSCULAR VOLUME 92.5 fl (82.0-101.0); MONOCYTE # 0.6 10^3/ul (0.3-0.9); MONOCYTES % 7.5 % (0.0-11.0); NEUTROPHIL # 6.1 10^3/ul (1.6-7.5); NEUTROPHILS % 72.9 % (39.0-77.0); PLATELET COUNT 206 10^3/UL (140-415); RED BLOOD COUNT 2.95 10^6/ul (4.20-5.40); RED CELL DISTRIBUTION WIDTH 18.4 % (11.5-14.5)
[2018-06-18 08:58] LABS: HEMOGLOBIN A1C 5.2 % (0-5.9)
[2018-06-18] MEDS ORDERED: NON-FORMULARY/PATIENT OWN MED (Esomeprazole Mag Trihydrate (Nexium) 40 MG) PO (09:00)
[2018-06-18] MEDS ORDERED: NON-FORMULARY/PATIENT OWN MED (Quetiapine Fumarate* 50 MG) PO (09:00)
[2018-06-18 09:16] LABS: IRON 169 ug/dl (35-150)
[2018-06-18 09:24] LABS: ALANINE AMINOTRANSFERASE 18 IU/L (13-69); ALBUMIN 2.9 g/dl (3.3-4.9); ALKALINE PHOSPHATASE 31 IU/L (42-121); ANION GAP 9 (5-13); ASPARTATE AMINO TRANSFERASE 16 IU/L (15-46); BILIRUBIN,INDIRECT 0.7 mg/dl (0-1.1); BILIRUBIN,TOTAL 0.7 mg/dl (0.2-1.3); BLOOD UREA NITROGEN 29 mg/dl (7-20); CALCIUM 9.1 mg/dl (8.4-10.2); CARBON DIOXIDE 24 mmol/L (21-31); CHLORIDE 106 mmol/L (97-110); CREATININE 0.95 mg/dl (0.44-1.00); GLUCOSE 102 mg/dl (70-220); MAGNESIUM 1.7 mg/dl (1.7-2.5); POTASSIUM 3.9 mmol/L (3.5-5.1); SODIUM 139 mmol/L (135-144); TOTAL PROTEIN 5.3 g/dl (6.1-8.1)
[2018-06-18 09:45] LABS: % IRON SATURATION 59 % SAT (22-52); TOTAL IRON BINDING CAPACITY 286 ug/dl (241-421)
[2018-06-18 09:59] LABS: FERRITIN 97.3 ng/ml (11.1-264.0)
[2018-06-18] MEDS: DIGOXIN 0.125 MG TAB PO (12:51)
[2018-06-18 16:48] LABS: FOLATE 6.7 ng/ml (2.8-20.0)
[2018-06-18] MEDS: ATORVASTATIN 10 MG TAB PO (20:54)
[2018-06-19] MEDS: PANTOPRAZOLE (EC) 40 MG TAB PO (06:24)
[2018-06-19] MEDS: ASPIRIN 81 MG TAB PO (08:34)
[2018-06-19] MEDS: MEMANTINE 10 MG TAB PO (08:34)
[2018-06-19] MEDS: ASCORBIC ACID 500 MG TAB PO (08:34)
[2018-06-19] MEDS: QUETIAPINE 25 MG TAB PO (08:34)
[2018-06-19] MEDS: DULOXETINE 30 MG CAP DR PO (08:34)
[2018-06-19] MEDS: MEGESTROL 40 MG TAB PO (08:34)
[2018-06-19] MEDS: TRIHEXYPHENIDYL 5 MG TAB PO (08:34)
[2018-06-19] MEDS: traMADol 50 MG TAB PO ×2 (08:34→12:13)
[2018-06-19] MEDS: OLOPATADINE 0.2% (ONCE A DAY) OPHTH DROP 2.5 ML BOTH EYES (08:35)
[2018-06-19 11:24] LABS: ADD MAN DIFF? NO
[2018-06-19 11:28] LABS: WHITE BLOOD COUNT 8.5 10^3/ul (4.8-10.8)
[2018-06-19 11:28] LABS: BASOPHILS % 0.5 % (0.0-2.0); EOSINOPHILS # 0.3 10^3/ul (0.0-0.5); EOSINOPHILS % 3.4 % (0.0-7.0); HEMATOCRIT 27.5 % (37.0-47.0); HEMOGLOBIN 8.7 g/dl (12.0-16.0); LYMPHOCYTES # 1.4 10^3/ul (0.8-2.9); LYMPHOCYTES % 16.7 % (15.0-51.0); MEAN CORPUSCULAR HEMOGLOBIN 29.8 pg (29.0-33.0); MEAN CORPUSCULAR HGB CONC 31.6 g/dl (32.0-37.0); MEAN CORPUSCULAR VOLUME 94.2 fl (82.0-101.0); MEAN PLATELET VOLUME 9.9 fl (7.4-10.4); MONOCYTE # 0.6 10^3/ul (0.3-0.9); MONOCYTES % 7.2 % (0.0-11.0); NEUTROPHIL # 6.1 10^3/ul (1.6-7.5); NEUTROPHILS % 71.4 % (39.0-77.0); PLATELET COUNT 244 10^3/UL (140-415); RED BLOOD COUNT 2.92 10^6/ul (4.20-5.40); RED CELL DISTRIBUTION WIDTH 19.5 % (11.5-14.5)
[2018-06-19] MEDS: DIGOXIN 0.125 MG TAB PO (12:13)
== END 2018-06-19 16:05 | disposition home or self-care (01) | DRG 812 ==
LOC: E/R 17:52 → TEL 20:51
PROVIDERS: Family Medicine; Pediatrics
PROC: 30233N1 Transfusion of Nonautologous Red Blood Cells into Peripheral Vein, Percutaneous Approach (ICD-10-PCS; principal; 2018-06-17)
DX: D50.9 Iron deficiency anemia, unspecified (principal); I35.0 Nonrheumatic aortic (valve) stenosis; Z95.5 Presence of coronary angioplasty implant and graft; J44.9 Chronic obstructive pulmonary disease, unspecified; I12.9 Hypertensive chronic kidney disease with stage 1 through stage 4 chronic kidney disease, or unspecified chronic kidney disease; N18.9 Chronic kidney disease, unspecified; E11.9 Type 2 diabetes mellitus without complications; F32.9 Major depressive disorder, single episode, unspecified
CPT/HCPCS: 36415; 36430; 80053; 82270; 82607; 82728; 82746; 83036; 83540; 83735; 84484; 85025; 85610; 85730; 86850; 86900; 86901; 86920; 93005; 99291-25

== ENCOUNTER 2018-06-23 15:01 | Inpatient (IN) | payer MEDICARE, OTHER ==
[2018-06-23 18:15] LABS: ABNORMAL IP MESSAGE 1; HEMATOCRIT 19.6 % (37.0-47.0); MEAN CORPUSCULAR HEMOGLOBIN 30.3 pg (29.0-33.0); MEAN CORPUSCULAR HGB CONC 30.6 g/dl (32.0-37.0); MEAN PLATELET VOLUME 9.8 fl (7.4-10.4); PLATELET COUNT 246 10^3/UL (140-415); RED BLOOD COUNT 1.98 10^6/ul (4.20-5.40); RED CELL DISTRIBUTION WIDTH 18.2 % (11.5-14.5)
[2018-06-23 18:15] LABS: WHITE BLOOD COUNT 7.7 10^3/ul (4.8-10.8)
[2018-06-23 18:20] LABS: POSITIVE DIFF @See below
[2018-06-23 18:22] LABS: ADD MAN DIFF? YES; PATH REVIEW? YES
[2018-06-23 18:34] LABS: ANION GAP 9 (5-13); BLOOD UREA NITROGEN 37 mg/dl (7-20); CALCIUM 8.2 mg/dl (8.4-10.2); CARBON DIOXIDE 20 mmol/L (21-31); CHLORIDE 110 mmol/L (97-110); GLUCOSE 88 mg/dl (70-220); POTASSIUM 3.9 mmol/L (3.5-5.1); SODIUM 139 mmol/L (135-144)
[2018-06-23] MEDS: SOD CHLORIDE 0.9% 250 ML IV (18:36)
[2018-06-23 18:46] LABS: TROPONIN-I 0.039 ng/ml (0.000-0.120)
[2018-06-23] MEDS: ASPIRIN 81 MG TAB PO (19:17)
[2018-06-23 20:15] LABS: ANISOCYTOSIS 1+ (0-0); EOSINOPHILS % (M) 1 % (0-7); LYMPHOCYTES #M 1.8 10^3/ul (0.8-2.9); LYMPHOCYTES % (M) 24 % (15-51); MICROCYTOSIS 1+ (0-0); MONOCYTE #M 0.3 10^3/ul (0.3-0.9); MONOCYTES % (M) 5 % (0-11); PLATELET MORPHOLOGY COMMENT @See below; POIKILOCYTOSIS 1+ (0-0); SEGMENTED NEUTROPHILS (M) % 70 % (39-77); SMUDGE%M 7 % (0-0)
[2018-06-23] MEDS ORDERED: ACETAMINOPHEN 325 MG TAB PO ×2 (21:00→22:30)
[2018-06-23] MEDS ORDERED: ONDANSETRON 4 MG INJ IV ×2 (21:00→22:30)
[2018-06-23 21:34] LABS: IMMEDIATE SPIN CROSSMATCH 1 2
[2018-06-23] MEDS ORDERED: ALPRAZOLAM 0.25 MG TAB PO (22:30)
[2018-06-23] MEDS ORDERED: NACL 0.9% 3 ML SYG IV (22:30)
[2018-06-23] MEDS ORDERED: NITROGLYCERIN (SL) 0.4 MG TAB SL (22:30)
[2018-06-23] MEDS ORDERED: ALBUTEROL/IPRATROPIUM (NEB) 3 ML AMP HHN (22:30)
[2018-06-23] MEDS ORDERED: BISACODYL (EC) 5 MG TAB PO (22:30)
[2018-06-23] MEDS ORDERED: GLUCOSE GEL 15 GRAM TUBE BUCCAL (23:00)
[2018-06-23] MEDS ORDERED: DEXTROSE 50% 50 ML SYRINGE IV ×2 (23:00)
[2018-06-23] MEDS ORDERED: GLUCOSE GEL 15 GRAM TUBE PO ×2 (23:00)
[2018-06-23] MEDS ORDERED: GLUCAGON 1 MG INJ IM (23:00)
[2018-06-23 23:18] LABS: CREATINE KINASE < 20 IU/L (23-200)
[2018-06-23 23:27] LABS: CK-MB 0.34 ng/ml (0.0-2.4); TROPONIN-I 0.027 ng/ml (0.000-0.120)
[2018-06-24] MEDS: ACCU-CHEK XX (02:00)
[2018-06-24 05:29] LABS: ADD MAN DIFF? NO
[2018-06-24 05:35] LABS: ABNORMAL IP MESSAGE 1; BASOPHILS % 0.5 % (0.0-2.0); EOSINOPHILS # 0.3 10^3/ul (0.0-0.5); EOSINOPHILS % 2.9 % (0.0-7.0); HEMATOCRIT 21.1 % (37.0-47.0); LYMPHOCYTES # 1.6 10^3/ul (0.8-2.9); LYMPHOCYTES % 18.8 % (15.0-51.0); MEAN CORPUSCULAR HGB CONC 31.3 g/dl (32.0-37.0); MEAN CORPUSCULAR VOLUME 95.9 fl (82.0-101.0); MEAN PLATELET VOLUME 9.7 fl (7.4-10.4); MONOCYTE # 0.5 10^3/ul (0.3-0.9); MONOCYTES % 5.8 % (0.0-11.0); NEUTROPHIL # 6.2 10^3/ul (1.6-7.5); NEUTROPHILS % 71.2 % (39.0-77.0); PLATELET COUNT 220 10^3/UL (140-415); RED CELL DISTRIBUTION WIDTH 18.3 % (11.5-14.5)
[2018-06-24 05:35] LABS: WHITE BLOOD COUNT 8.7 10^3/ul (4.8-10.8)
[2018-06-24 05:41] LABS: HEMOGLOBIN A1C 5.4 % (0-5.9)
[2018-06-24 05:56] LABS: POSITIVE DIFF @See below
[2018-06-24 05:57] LABS: HEMOGLOBIN 6.6 g/dl (12.0-16.0)
[2018-06-24 06:01] LABS: CREATINE KINASE < 20 IU/L (23-200)
[2018-06-24 06:04] LABS: ALANINE AMINOTRANSFERASE 18 IU/L (13-69); ALBUMIN 2.7 g/dl (3.3-4.9); ALBUMIN/GLOBULIN RATIO 1.17; ALKALINE PHOSPHATASE 32 IU/L (42-121); ANION GAP 8 (5-13); ASPARTATE AMINO TRANSFERASE 11 IU/L (15-46); BILIRUBIN,INDIRECT 0.3 mg/dl (0-1.1); BILIRUBIN,TOTAL 0.3 mg/dl (0.2-1.3); BLOOD UREA NITROGEN 30 mg/dl (7-20); CALCIUM 8.3 mg/dl (8.4-10.2); CARBON DIOXIDE 22 mmol/L (21-31); CHLORIDE 110 mmol/L (97-110); CHOL/HDL RATIO 5.8 RATIO; CHOLESTEROL 88 mg/dl (100-200); CREATININE 0.97 mg/dl (0.44-1.00); GLUCOSE 100 mg/dl (70-220); HDL CHOLESTEROL 15 mg/dl (33-92); LDL CHOLESTEROL,CALCULATED 49 mg/dl; MAGNESIUM 1.9 mg/dl (1.7-2.5); POTASSIUM 3.5 mmol/L (3.5-5.1); SODIUM 140 mmol/L (135-144); TRIGLYCERIDES 121 mg/dl (0-149)
[2018-06-24 06:07] LABS: CK-MB 0.32 ng/ml (0.0-2.4); TROPONIN-I 0.017 ng/ml (0.000-0.120)
[2018-06-24] MEDS: PANTOPRAZOLE (EC) 40 MG TAB PO (06:38)
[2018-06-24] MEDS: INSULIN ASPART [NOVOLOG] 3 ML PEN SC ×4 (07:55→20:31)
[2018-06-24] MEDS: DOCUSATE SODIUM 250 MG CAP PO ×2 (08:55→20:31)
[2018-06-24] MEDS: DULOXETINE 30 MG CAP DR PO (08:56)
[2018-06-24] MEDS: MEMANTINE 10 MG TAB PO ×2 (08:57→20:35)
[2018-06-24] MEDS: ASCORBIC ACID 500 MG TAB PO ×2 (08:57→20:31)
[2018-06-24] MEDS: DIGOXIN 0.125 MG TAB PO (08:57)
[2018-06-24] MEDS: ISOSORBIDE MONONITRATE(SR)30 MG TAB PO (08:58)
[2018-06-24] MEDS: traMADol 50 MG TAB PO ×4 (08:58→20:35)
[2018-06-24] MEDS: FERROUS SULFATE (EC) 325 MG TAB PO ×2 (08:59→20:31)
[2018-06-24] MEDS: QUETIAPINE 25 MG TAB PO (08:59)
[2018-06-24] MEDS: FUROSEMIDE 20 MG TAB PO (08:59)
[2018-06-24] MEDS ORDERED: NON-FORMULARY/PATIENT OWN MED (Quetiapine Fumarate* 50 MG) PO (09:00)
[2018-06-24] MEDS ORDERED: NON-FORMULARY/PATIENT OWN MED (Esomeprazole Mag Trihydrate (Nexium) 40 MG) PO (09:00)
[2018-06-24] MEDS ORDERED: SPIRONOLACTONE (5 MG/ML PO SYG) PO (09:00)
[2018-06-24] MEDS: SPIRONOLACTONE 25 MG TAB PO (09:00)
[2018-06-24] MEDS: OLOPATADINE 0.2% (ONCE A DAY) OPHTH DROP 2.5 ML BOTH EYES (11:45)
[2018-06-24] MEDS: MEGESTROL 40 MG TAB PO ×2 (11:45→20:31)
[2018-06-24] MEDS: CYANOCOBALAMIN 1000 MCG INJ IM (11:45)
[2018-06-24] MEDS: TRIHEXYPHENIDYL 5 MG TAB PO (13:36)
[2018-06-24] MEDS: POTASSIUM CHLORIDE 20 MEQ POWDER FOR ORAL SOLN PO (16:22)
[2018-06-24] MEDS: ATORVASTATIN 10 MG TAB PO (20:35)
[2018-06-25] MEDS: ACCU-CHEK XX (02:00)
[2018-06-25] MEDS: PANTOPRAZOLE (EC) 40 MG TAB PO (06:34)
[2018-06-25] MEDS: INSULIN ASPART [NOVOLOG] 3 ML PEN SC ×4 (07:46→20:45)
[2018-06-25] MEDS: OLOPATADINE 0.2% (ONCE A DAY) OPHTH DROP 2.5 ML BOTH EYES (08:41)
[2018-06-25 08:42] LABS: ADD MAN DIFF? NO
[2018-06-25] MEDS: traMADol 50 MG TAB PO ×3 (08:42→20:54)
[2018-06-25] MEDS: MEMANTINE 10 MG TAB PO ×2 (08:42→20:46)
[2018-06-25] MEDS: DOCUSATE SODIUM 250 MG CAP PO ×2 (08:42→20:46)
[2018-06-25] MEDS: CYANOCOBALAMIN 1000 MCG INJ IM (08:42)
[2018-06-25] MEDS: TRIHEXYPHENIDYL 5 MG TAB PO (08:42)
[2018-06-25] MEDS: FERROUS SULFATE (EC) 325 MG TAB PO (08:42)
[2018-06-25] MEDS: MEGESTROL 40 MG TAB PO ×2 (08:43→20:46)
[2018-06-25] MEDS: ASCORBIC ACID 500 MG TAB PO ×2 (08:43→20:45)
[2018-06-25] MEDS: FUROSEMIDE 20 MG TAB PO (08:43)
[2018-06-25] MEDS: DIGOXIN 0.125 MG TAB PO (08:43)
[2018-06-25] MEDS: SPIRONOLACTONE 25 MG TAB PO (08:44)
[2018-06-25] MEDS: QUETIAPINE 25 MG TAB PO (08:44)
[2018-06-25] MEDS: POTASSIUM CHLORIDE 20 MEQ POWDER FOR ORAL SOLN PO (08:44)
[2018-06-25] MEDS: DULOXETINE 30 MG CAP DR PO (08:45)
[2018-06-25 08:47] LABS: BASOPHILS % 0.4 % (0.0-2.0); EOSINOPHILS # 0.4 10^3/ul (0.0-0.5); EOSINOPHILS % 4.3 % (0.0-7.0); HEMATOCRIT 26.7 % (37.0-47.0); HEMOGLOBIN 8.5 g/dl (12.0-16.0); LYMPHOCYTES # 1.5 10^3/ul (0.8-2.9); LYMPHOCYTES % 18.1 % (15.0-51.0); MEAN CORPUSCULAR HGB CONC 31.8 g/dl (32.0-37.0); MEAN CORPUSCULAR VOLUME 94.3 fl (82.0-101.0); MEAN PLATELET VOLUME 9.6 fl (7.4-10.4); MONOCYTE # 0.6 10^3/ul (0.3-0.9); MONOCYTES % 6.7 % (0.0-11.0); NEUTROPHIL # 5.8 10^3/ul (1.6-7.5); NEUTROPHILS % 69.5 % (39.0-77.0); PLATELET COUNT 244 10^3/UL (140-415); RED BLOOD COUNT 2.83 10^6/ul (4.20-5.40); RED CELL DISTRIBUTION WIDTH 17.3 % (11.5-14.5)
[2018-06-25 08:47] LABS: WHITE BLOOD COUNT 8.3 10^3/ul (4.8-10.8)
[2018-06-25] MEDS: ISOSORBIDE MONONITRATE(SR)30 MG TAB PO (08:48)
[2018-06-25 09:07] LABS: INR 1.01; PROTIME 13.4 Sec (11.9-14.9)
[2018-06-25 09:16] LABS: ALANINE AMINOTRANSFERASE 18 IU/L (13-69); ALBUMIN 2.9 g/dl (3.3-4.9); ALBUMIN/GLOBULIN RATIO 1.16; ALKALINE PHOSPHATASE 37 IU/L (42-121); ANION GAP 8 (5-13); ASPARTATE AMINO TRANSFERASE 15 IU/L (15-46); BILIRUBIN,INDIRECT 0.4 mg/dl (0-1.1); BILIRUBIN,TOTAL 0.4 mg/dl (0.2-1.3); BLOOD UREA NITROGEN 27 mg/dl (7-20); CALCIUM 8.5 mg/dl (8.4-10.2); CARBON DIOXIDE 22 mmol/L (21-31); CHLORIDE 110 mmol/L (97-110); CREATININE 0.92 mg/dl (0.44-1.00); GLUCOSE 108 mg/dl (70-220); MAGNESIUM 1.9 mg/dl (1.7-2.5); POTASSIUM 4.2 mmol/L (3.5-5.1); SODIUM 140 mmol/L (135-144); TOTAL PROTEIN 5.4 g/dl (6.1-8.1)
[2018-06-25] MEDS: ATORVASTATIN 10 MG TAB PO (20:45)
[2018-06-26] MEDS: ACCU-CHEK XX (02:00)
[2018-06-26] MEDS: PANTOPRAZOLE (EC) 40 MG TAB PO (06:15)
[2018-06-26] MEDS: INSULIN ASPART [NOVOLOG] 3 ML PEN SC ×4 (07:50→20:35)
[2018-06-26 08:11] LABS: ADD MAN DIFF? NO
[2018-06-26 08:20] LABS: BASOPHILS % 0.2 % (0.0-2.0); EOSINOPHILS # 0.3 10^3/ul (0.0-0.5); EOSINOPHILS % 3.4 % (0.0-7.0); HEMATOCRIT 26.9 % (37.0-47.0); HEMOGLOBIN 8.4 g/dl (12.0-16.0); LYMPHOCYTES # 1.7 10^3/ul (0.8-2.9); LYMPHOCYTES % 20.3 % (15.0-51.0); MEAN CORPUSCULAR HEMOGLOBIN 30.1 pg (29.0-33.0); MEAN CORPUSCULAR HGB CONC 31.2 g/dl (32.0-37.0); MEAN CORPUSCULAR VOLUME 96.4 fl (82.0-101.0); MEAN PLATELET VOLUME 9.6 fl (7.4-10.4); MONOCYTE # 0.7 10^3/ul (0.3-0.9); MONOCYTES % 7.9 % (0.0-11.0); NEUTROPHIL # 5.6 10^3/ul (1.6-7.5); NEUTROPHILS % 67.2 % (39.0-77.0); PLATELET COUNT 264 10^3/UL (140-415); RED BLOOD COUNT 2.79 10^6/ul (4.20-5.40); RED CELL DISTRIBUTION WIDTH 17.6 % (11.5-14.5)
[2018-06-26 08:20] LABS: WHITE BLOOD COUNT 8.3 10^3/ul (4.8-10.8)
[2018-06-26 08:57] LABS: ANION GAP 8 (5-13); BLOOD UREA NITROGEN 26 mg/dl (7-20); CALCIUM 8.8 mg/dl (8.4-10.2); CARBON DIOXIDE 22 mmol/L (21-31); CHLORIDE 109 mmol/L (97-110); CREATININE 1.03 mg/dl (0.44-1.00); GLUCOSE 109 mg/dl (70-220); SODIUM 139 mmol/L (135-144)
[2018-06-26] MEDS: QUETIAPINE 25 MG TAB PO (09:00)
[2018-06-26] MEDS: DULOXETINE 30 MG CAP DR PO (09:00)
[2018-06-26] MEDS: POTASSIUM CHLORIDE 20 MEQ POWDER FOR ORAL SOLN PO (09:05)
[2018-06-26] MEDS: MEMANTINE 10 MG TAB PO ×2 (09:05→20:34)
[2018-06-26] MEDS: OLOPATADINE 0.2% (ONCE A DAY) OPHTH DROP 2.5 ML BOTH EYES (09:05)
[2018-06-26] MEDS: DIGOXIN 0.125 MG TAB PO (09:06)
[2018-06-26] MEDS: DOCUSATE SODIUM 250 MG CAP PO ×2 (09:06→20:34)
[2018-06-26] MEDS: MEGESTROL 40 MG TAB PO (09:06)
[2018-06-26] MEDS: ISOSORBIDE MONONITRATE(SR)30 MG TAB PO (09:06)
[2018-06-26] MEDS: traMADol 50 MG TAB PO ×3 (09:06→20:34)
[2018-06-26] MEDS: ASCORBIC ACID 500 MG TAB PO ×2 (09:06→20:34)
[2018-06-26] MEDS: CYANOCOBALAMIN 1000 MCG INJ IM (09:07)
[2018-06-26] MEDS: FUROSEMIDE 20 MG TAB PO (09:07)
[2018-06-26] MEDS: TRIHEXYPHENIDYL 5 MG TAB PO (09:07)
[2018-06-26 09:47] LABS: POTASSIUM 4.8 mmol/L (3.5-5.1)
[2018-06-26] MEDS: ATORVASTATIN 10 MG TAB PO (20:34)
[2018-06-27] MEDS: ACCU-CHEK XX (02:00)
[2018-06-27] MEDS: PANTOPRAZOLE (EC) 40 MG TAB PO (06:38)
[2018-06-27 07:07] LABS: ADD MAN DIFF? NO
[2018-06-27 07:13] LABS: BASOPHIL # 0.1 10^3/ul (0.0-0.1); BASOPHILS % 0.7 % (0.0-2.0); EOSINOPHILS # 0.3 10^3/ul (0.0-0.5); EOSINOPHILS % 3.2 % (0.0-7.0); HEMATOCRIT 23.8 % (37.0-47.0); HEMOGLOBIN 7.4 g/dl (12.0-16.0); LYMPHOCYTES # 1.9 10^3/ul (0.8-2.9); LYMPHOCYTES % 20.7 % (15.0-51.0); MEAN CORPUSCULAR HEMOGLOBIN 30.1 pg (29.0-33.0); MEAN CORPUSCULAR HGB CONC 31.1 g/dl (32.0-37.0); MEAN CORPUSCULAR VOLUME 96.7 fl (82.0-101.0); MEAN PLATELET VOLUME 9.8 fl (7.4-10.4); MONOCYTE # 0.7 10^3/ul (0.3-0.9); MONOCYTES % 7.6 % (0.0-11.0); NEUTROPHILS % 66.6 % (39.0-77.0); PLATELET COUNT 248 10^3/UL (140-415); RED BLOOD COUNT 2.46 10^6/ul (4.20-5.40); RED CELL DISTRIBUTION WIDTH 18.2 % (11.5-14.5)
[2018-06-27 07:27] LABS: INR 1.05; PROTIME 13.8 Sec (11.9-14.9); PT RATIO 1.1
[2018-06-27 07:28] LABS: PARTIAL THROMBOPLASTIN TIME 30.8 Sec (23.0-35.0)
[2018-06-27 07:54] LABS: ALANINE AMINOTRANSFERASE 18 IU/L (13-69); ALBUMIN 3.2 g/dl (3.3-4.9); ALBUMIN/GLOBULIN RATIO 1.28; ALKALINE PHOSPHATASE 38 IU/L (42-121); ANION GAP 12 (5-13); ASPARTATE AMINO TRANSFERASE 16 IU/L (15-46); BILIRUBIN,INDIRECT 0.3 mg/dl (0-1.1); BILIRUBIN,TOTAL 0.3 mg/dl (0.2-1.3); BLOOD UREA NITROGEN 35 mg/dl (7-20); CALCIUM 8.6 mg/dl (8.4-10.2); CARBON DIOXIDE 19 mmol/L (21-31); CHLORIDE 108 mmol/L (97-110); CREATININE 1.16 mg/dl (0.44-1.00); GLUCOSE 116 mg/dl (70-220); POTASSIUM 4.3 mmol/L (3.5-5.1); SODIUM 139 mmol/L (135-144); TOTAL PROTEIN 5.7 g/dl (6.1-8.1)
[2018-06-27] MEDS: INSULIN ASPART [NOVOLOG] 3 ML PEN SC ×4 (07:55→20:06)
[2018-06-27] MEDS: DOCUSATE SODIUM 250 MG CAP PO ×2 (08:02→20:06)
[2018-06-27] MEDS: DIGOXIN 0.125 MG TAB PO (08:02)
[2018-06-27] MEDS: TRIHEXYPHENIDYL 5 MG TAB PO (08:02)
[2018-06-27] MEDS: ASCORBIC ACID 500 MG TAB PO ×2 (08:02→20:05)
[2018-06-27] MEDS: QUETIAPINE 25 MG TAB PO (08:02)
[2018-06-27] MEDS: ISOSORBIDE MONONITRATE(SR)30 MG TAB PO (08:03)
[2018-06-27] MEDS: FUROSEMIDE 20 MG TAB PO (08:03)
[2018-06-27] MEDS: MEMANTINE 10 MG TAB PO ×2 (08:03→20:05)
[2018-06-27] MEDS: CYANOCOBALAMIN 1000 MCG INJ IM (08:03)
[2018-06-27] MEDS: OLOPATADINE 0.2% (ONCE A DAY) OPHTH DROP 2.5 ML BOTH EYES (08:04)
[2018-06-27] MEDS: POTASSIUM CHLORIDE 20 MEQ POWDER FOR ORAL SOLN PO (08:04)
[2018-06-27] MEDS: DULOXETINE 30 MG CAP DR PO (08:09)
[2018-06-27] MEDS: traMADol 50 MG TAB PO ×3 (08:10→20:05)
[2018-06-27 17:43] LABS: AHG CROSSMATCH 1 2
[2018-06-27] MEDS: ATORVASTATIN 10 MG TAB PO (20:05)
[2018-06-28] MEDS: ACCU-CHEK XX (02:00)
[2018-06-28] MEDS: PANTOPRAZOLE (EC) 40 MG TAB PO (06:29)
[2018-06-28 07:14] LABS: ADD MAN DIFF? NO
[2018-06-28 07:50] LABS: DIGOXIN 0.7 ng/ml (1.0-2.0)
[2018-06-28] MEDS: INSULIN ASPART [NOVOLOG] 3 ML PEN SC ×4 (07:55→20:22)
[2018-06-28] MEDS: DOCUSATE SODIUM 250 MG CAP PO ×2 (08:13→20:18)
[2018-06-28] MEDS: TRIHEXYPHENIDYL 5 MG TAB PO (08:13)
[2018-06-28] MEDS: POTASSIUM CHLORIDE 20 MEQ POWDER FOR ORAL SOLN PO (08:13)
[2018-06-28] MEDS: DIGOXIN 0.125 MG TAB PO (08:14)
[2018-06-28] MEDS: DULOXETINE 30 MG CAP DR PO (08:14)
[2018-06-28] MEDS: FUROSEMIDE 20 MG TAB PO (08:14)
[2018-06-28] MEDS: ISOSORBIDE MONONITRATE(SR)30 MG TAB PO (08:14)
[2018-06-28] MEDS: QUETIAPINE 25 MG TAB PO (08:14)
[2018-06-28] MEDS: MEMANTINE 10 MG TAB PO ×2 (08:15→20:17)
[2018-06-28] MEDS: OLOPATADINE 0.2% (ONCE A DAY) OPHTH DROP 2.5 ML BOTH EYES (08:15)
[2018-06-28] MEDS: CYANOCOBALAMIN 1000 MCG INJ IM (08:15)
[2018-06-28] MEDS: traMADol 50 MG TAB PO ×3 (08:15→20:15)
[2018-06-28] MEDS: ASCORBIC ACID 500 MG TAB PO ×2 (08:15→20:17)
[2018-06-28 10:14] LABS: ABNORMAL IP MESSAGE 1; BASOPHILS % 0.4 % (0.0-2.0); EOSINOPHILS # 0.4 10^3/ul (0.0-0.5); EOSINOPHILS % 4.1 % (0.0-7.0); HEMATOCRIT 25.3 % (37.0-47.0); HEMOGLOBIN 7.9 g/dl (12.0-16.0); LYMPHOCYTES % 22.5 % (15.0-51.0); MEAN CORPUSCULAR HEMOGLOBIN 30.6 pg (29.0-33.0); MEAN CORPUSCULAR HGB CONC 31.2 g/dl (32.0-37.0); MEAN CORPUSCULAR VOLUME 98.1 fl (82.0-101.0); MONOCYTE # 0.7 10^3/ul (0.3-0.9); MONOCYTES % 7.8 % (0.0-11.0); NEUTROPHIL # 5.7 10^3/ul (1.6-7.5); PLATELET COUNT 239 10^3/UL (140-415); RED BLOOD COUNT 2.58 10^6/ul (4.20-5.40); RED CELL DISTRIBUTION WIDTH 18.6 % (11.5-14.5)
[2018-06-28 10:15] LABS: POSITIVE DIFF @See below
[2018-06-28] MEDS: SOD CHLORIDE 0.9% 250 ML IV* (12:58)
[2018-06-28] MEDS: FUROSEMIDE 40 MG INJ IV (15:21)
[2018-06-28] MEDS: SOD FERRIC GLUC COMPLX 125 MG in SOD CHLORIDE 0.9% 100 ML IVPB (16:34)
[2018-06-28] MEDS: ALPRAZOLAM 0.5 MG TAB PO (20:17)
[2018-06-28] MEDS: ATORVASTATIN 10 MG TAB PO (20:17)
[2018-06-29] MEDS: ACCU-CHEK XX (01:17)
[2018-06-29] MEDS: PANTOPRAZOLE (EC) 40 MG TAB PO (06:09)
[2018-06-29 07:21] LABS: ADD MAN DIFF? NO
[2018-06-29 07:27] LABS: BASOPHIL # 0.1 10^3/ul (0.0-0.1); BASOPHILS % 0.5 % (0.0-2.0); EOSINOPHILS # 0.3 10^3/ul (0.0-0.5); EOSINOPHILS % 3.5 % (0.0-7.0); HEMATOCRIT 26.7 % (37.0-47.0); HEMOGLOBIN 8.7 g/dl (12.0-16.0); LYMPHOCYTES # 1.7 10^3/ul (0.8-2.9); LYMPHOCYTES % 17.4 % (15.0-51.0); MEAN CORPUSCULAR HEMOGLOBIN 30.4 pg (29.0-33.0); MEAN CORPUSCULAR HGB CONC 32.6 g/dl (32.0-37.0); MEAN CORPUSCULAR VOLUME 93.4 fl (82.0-101.0); MEAN PLATELET VOLUME 10.2 fl (7.4-10.4); MONOCYTE # 0.7 10^3/ul (0.3-0.9); MONOCYTES % 7.4 % (0.0-11.0); NEUTROPHIL # 6.7 10^3/ul (1.6-7.5); NEUTROPHILS % 70.1 % (39.0-77.0); PLATELET COUNT 228 10^3/UL (140-415); RED BLOOD COUNT 2.86 10^6/ul (4.20-5.40); RED CELL DISTRIBUTION WIDTH 17.7 % (11.5-14.5)
[2018-06-29 07:27] LABS: WHITE BLOOD COUNT 9.5 10^3/ul (4.8-10.8)
[2018-06-29 07:49] LABS: IRON 93 ug/dl (35-150)
[2018-06-29 07:54] LABS: MAGNESIUM 2.1 mg/dl (1.7-2.5)
[2018-06-29 07:54] LABS: PHOSPHORUS 4.8 mg/dl (2.5-4.9)
[2018-06-29] MEDS: INSULIN ASPART [NOVOLOG] 3 ML PEN SC ×2 (07:55→11:50)
[2018-06-29 07:58] LABS: ANION GAP 11 (5-13); BLOOD UREA NITROGEN 51 mg/dl (7-20); CALCIUM 8.3 mg/dl (8.4-10.2); CARBON DIOXIDE 20 mmol/L (21-31); CHLORIDE 108 mmol/L (97-110); CREATININE 1.26 mg/dl (0.44-1.00); GLUCOSE 101 mg/dl (70-220); POTASSIUM 3.8 mmol/L (3.5-5.1); SODIUM 139 mmol/L (135-144)
[2018-06-29 07:59] LABS: % IRON SATURATION 26 % SAT (22-52); TOTAL IRON BINDING CAPACITY 356 ug/dl (241-421)
[2018-06-29] MEDS: POTASSIUM CHLORIDE 20 MEQ POWDER FOR ORAL SOLN PO (08:06)
[2018-06-29] MEDS: DOCUSATE SODIUM 250 MG CAP PO (08:06)
[2018-06-29] MEDS: ASCORBIC ACID 500 MG TAB PO (08:06)
[2018-06-29] MEDS: DULOXETINE 30 MG CAP DR PO (08:06)
[2018-06-29] MEDS: MEMANTINE 10 MG TAB PO (08:06)
[2018-06-29] MEDS: TRIHEXYPHENIDYL 5 MG TAB PO (08:06)
[2018-06-29] MEDS: FUROSEMIDE 20 MG TAB PO (08:07)
[2018-06-29] MEDS: QUETIAPINE 25 MG TAB PO (08:07)
[2018-06-29] MEDS: DIGOXIN 0.125 MG TAB PO (08:07)
[2018-06-29] MEDS: ISOSORBIDE MONONITRATE(SR)30 MG TAB PO (08:07)
[2018-06-29] MEDS: CYANOCOBALAMIN 1000 MCG INJ IM (08:07)
[2018-06-29] MEDS: OLOPATADINE 0.2% (ONCE A DAY) OPHTH DROP 2.5 ML BOTH EYES (08:08)
[2018-06-29] MEDS: traMADol 50 MG TAB PO ×2 (08:08→12:14)
[2018-06-29] MEDS: FERROUS SULFATE (EC) 325 MG TAB PO (08:10)
[2018-06-29 08:27] LABS: FERRITIN 52.9 ng/ml (11.1-264.0)
== END 2018-06-29 13:41 | disposition hospice, home (50) | DRG 812 ==
LOC: TEL 20:40 → E/R 15:01
PROC: 30233N1 Transfusion of Nonautologous Red Blood Cells into Peripheral Vein, Percutaneous Approach (ICD-10-PCS; principal; 2018-06-23)
DX: D50.9 Iron deficiency anemia, unspecified (principal); K92.1 Melena; I13.0 Hypertensive heart and chronic kidney disease with heart failure and stage 1 through stage 4 chronic kidney disease, or unspecified chronic kidney disease; R07.89 Other chest pain; I25.2 Old myocardial infarction; N18.9 Chronic kidney disease, unspecified; I50.9 Heart failure, unspecified; D63.1 Anemia in chronic kidney disease; G30.9 Alzheimer's disease, unspecified; F02.80 Dementia in other diseases classified elsewhere, unspecified severity, without behavioral disturbance, psychotic disturbance, mood disturbance, and anxiety; E11.22 Type 2 diabetes mellitus with diabetic chronic kidney disease; I25.10 Atherosclerotic heart disease of native coronary artery without angina pectoris; J44.9 Chronic obstructive pulmonary disease, unspecified; Z95.5 Presence of coronary angioplasty implant and graft; I35.0 Nonrheumatic aortic (valve) stenosis; I35.1 Nonrheumatic aortic (valve) insufficiency; I34.0 Nonrheumatic mitral (valve) insufficiency; E78.5 Hyperlipidemia, unspecified; F32.9 Major depressive disorder, single episode, unspecified; M81.0 Age-related osteoporosis without current pathological fracture
CPT/HCPCS: 36415; 36430; 71045; 80048; 80053; 80061; 80162; 82550; 82553; 82728; 82962; 83036; 83540; 83735; 84100; 84443; 84484; 85025; 85610; 85730; 86850; 86870; 86900; 86901; 86920; 90686; 93005; 99291-25; G0378

== ENCOUNTER 2018-07-22 04:26 | Inpatient (IN) | payer MEDICARE, OTHER ==
[2018-07-22 05:35] LABS: WHITE BLOOD COUNT 10.5 10^3/ul (4.8-10.8)
[2018-07-22 05:35] LABS: ABNORMAL IP MESSAGE 1; HEMATOCRIT 19.6 % (37.0-47.0); MEAN CORPUSCULAR HEMOGLOBIN 28.9 pg (29.0-33.0); MEAN CORPUSCULAR HGB CONC 30.1 g/dl (32.0-37.0); MEAN CORPUSCULAR VOLUME 96.1 fl (82.0-101.0); MEAN PLATELET VOLUME 10.3 fl (7.4-10.4); PLATELET COUNT 259 10^3/UL (140-415); RED BLOOD COUNT 2.04 10^6/ul (4.20-5.40); RED CELL DISTRIBUTION WIDTH 14.1 % (11.5-14.5)
[2018-07-22 05:55] LABS: ALANINE AMINOTRANSFERASE 12 IU/L (13-69); ALBUMIN 3.3 g/dl (3.3-4.9); ALBUMIN/GLOBULIN RATIO 1.37; ALKALINE PHOSPHATASE 36 IU/L (42-121); ANION GAP 17 (5-13); ASPARTATE AMINO TRANSFERASE 20 IU/L (15-46); BLOOD UREA NITROGEN 26 mg/dl (7-20); CARBON DIOXIDE 16 mmol/L (21-31); CHLORIDE 110 mmol/L (97-110); CREATININE 1.26 mg/dl (0.44-1.00); GLUCOSE 150 mg/dl (70-220); POTASSIUM 3.8 mmol/L (3.5-5.1); SODIUM 143 mmol/L (135-144); TOTAL PROTEIN 5.7 g/dl (6.1-8.1)
[2018-07-22 05:58] LABS: POSITIVE DIFF @See below
[2018-07-22 06:07] LABS: B-TYPE NATRIURETIC PEPTIDE 3170 PG/ML (0-450)
[2018-07-22 06:08] LABS: HEMOGLOBIN 5.9 g/dl (12.0-16.0)
[2018-07-22 06:10] LABS: ADD MAN DIFF? YES; TROPONIN-I 0.527 ng/ml (0.000-0.120)
[2018-07-22 07:20] LABS: ANISOCYTOSIS 1+ (0-0); BAND NEUTROPHILS #M 0.7 10^3/ul (0.0-0.6); BAND NEUTROPHILS % (M) 7 % (0-4); BURR CELLS 1+ (0-0); EOSINOPHILS % (M) 3 % (0-7); GIANT THROMBO% (M) 2 % (0-0); LYMPHOCYTES #M 1.8 10^3/ul (0.8-2.9); LYMPHOCYTES % (M) 18 % (15-51); MICROCYTOSIS 1+ (0-0); MONOCYTE #M 0.7 10^3/ul (0.3-0.9); MONOCYTES % (M) 7 % (0-11); PLATELET ESTIMATE NORMAL; POIKILOCYTOSIS 1+ (0-0); POLYCHROMASIA 1+ (0-0); REACTIVE LYMPHOCYTES #M 0.4 10^3/ul (0.0-0.0); REACTIVE LYMPHOCYTES% (M) 4 % (0-0); SEG NEUT #M 6.5 10^3/ul (1.6-7.5); SEGMENTED NEUTROPHILS (M) % 61 % (39-77); SMUDGE%M 4 % (0-0)
[2018-07-22 12:06] LABS: CREATINE KINASE 617 IU/L (23-200)
[2018-07-22 12:17] LABS: CK INDEX 10.1
[2018-07-22] MEDS: SOD CHLORIDE 0.9% 250 ML IV* (12:27)
[2018-07-22] MEDS ORDERED: DOCUSATE SODIUM 100 MG CAP PO (12:30)
[2018-07-22] MEDS ORDERED: morphine 2 MG INJ IV (12:30)
[2018-07-22] MEDS ORDERED: NITROGLYCERIN (SL) 0.4 MG TAB SL (12:30)
[2018-07-22] MEDS ORDERED: ACETAMINOPHEN 650MG/20.3ML CUP PO (12:30)
[2018-07-22] MEDS ORDERED: NACL 0.9% 3 ML SYG IV (12:30)
[2018-07-22] MEDS ORDERED: ACETAMINOPHEN 325 MG TAB PO (12:30)
[2018-07-22] MEDS ORDERED: ONDANSETRON 4 MG INJ IV ×2 (12:30)
[2018-07-22] MEDS: FAMOTIDINE 20 MG TAB PO (13:00)
[2018-07-22 13:45] LABS: AHG CROSSMATCH 1 4
[2018-07-22] MEDS: SOD FERRIC GLUC COMPLX 125 MG in SOD CHLORIDE 0.9% 100 ML IVPB (14:08)
[2018-07-22 14:52] LABS: IRON 46 ug/dl (35-150)
[2018-07-22 15:01] LABS: % IRON SATURATION 14 % SAT (22-52); TOTAL IRON BINDING CAPACITY 318 ug/dl (241-421)
[2018-07-22] MEDS ORDERED: BISACODYL (EC) 5 MG TAB PO (15:30)
[2018-07-22] MEDS ORDERED: ALPRAZOLAM 0.25 MG TAB PO (15:30)
[2018-07-22] MEDS ORDERED: FUROSEMIDE 20 MG INJ (17:25)
[2018-07-22] MEDS: FUROSEMIDE 20 MG INJ IV (17:32)
[2018-07-22] MEDS: PANTOPRAZOLE (EC) 40 MG TAB PO (18:40)
[2018-07-22 19:19] LABS: CREATINE KINASE 692 IU/L (23-200)
[2018-07-22 19:31] LABS: CK INDEX 9.5
[2018-07-22 20:24] LABS: FOLATE 7.4 ng/ml (2.8-20.0)
[2018-07-22] MEDS: MEMANTINE 10 MG TAB PO (21:08)
[2018-07-22] MEDS: ATORVASTATIN 80 MG TAB PO (21:08)
[2018-07-22] MEDS: DOCUSATE SODIUM 250 MG CAP PO (21:08)
[2018-07-22] MEDS: FUROSEMIDE 20 MG INJ IM (23:25)
[2018-07-23 05:35] LABS: ADD MAN DIFF? NO
[2018-07-23 05:43] LABS: WHITE BLOOD COUNT 12.2 10^3/ul (4.8-10.8)
[2018-07-23 05:43] LABS: BASOPHIL # 0.1 10^3/ul (0.0-0.1); BASOPHILS % 0.5 % (0.0-2.0); EOSINOPHILS # 0.1 10^3/ul (0.0-0.5); HEMATOCRIT 32.8 % (37.0-47.0); LYMPHOCYTES # 1.4 10^3/ul (0.8-2.9); LYMPHOCYTES % 11.3 % (15.0-51.0); MEAN CORPUSCULAR HEMOGLOBIN 28.5 pg (29.0-33.0); MEAN CORPUSCULAR HGB CONC 33.5 g/dl (32.0-37.0); MEAN PLATELET VOLUME 9.8 fl (7.4-10.4); MONOCYTE # 0.8 10^3/ul (0.3-0.9); MONOCYTES % 6.5 % (0.0-11.0); NEUTROPHIL # 9.8 10^3/ul (1.6-7.5); NEUTROPHILS % 79.7 % (39.0-77.0); PLATELET COUNT 233 10^3/UL (140-415); RED BLOOD COUNT 3.86 10^6/ul (4.20-5.40); RED CELL DISTRIBUTION WIDTH 16.6 % (11.5-14.5)
[2018-07-23] MEDS: PANTOPRAZOLE (EC) 40 MG TAB PO ×2 (05:51→18:19)
[2018-07-23 05:53] LABS: RETICULOCYTE RBC 3.91
[2018-07-23 05:53] LABS: RETICULOCYTE COUNT # 0.128 X10^6 (0.020-0.110); RETICULOCYTE COUNT % 3.3 % (0.5-1.5)
[2018-07-23 05:58] LABS: ALANINE AMINOTRANSFERASE 19 IU/L (13-69); ALBUMIN 3.5 g/dl (3.3-4.9); ALBUMIN/GLOBULIN RATIO 1.02; ALKALINE PHOSPHATASE 46 IU/L (42-121); ANION GAP 13 (5-13); ASPARTATE AMINO TRANSFERASE 78 IU/L (15-46); BILIRUBIN,INDIRECT 0.9 mg/dl (0-1.1); BILIRUBIN,TOTAL 0.9 mg/dl (0.2-1.3); BLOOD UREA NITROGEN 25 mg/dl (7-20); CALCIUM 8.9 mg/dl (8.4-10.2); CARBON DIOXIDE 24 mmol/L (21-31); CHLORIDE 107 mmol/L (97-110); CHOL/HDL RATIO 4.8 RATIO; CHOLESTEROL 87 mg/dl (100-200); CREATININE 0.89 mg/dl (0.44-1.00); GLUCOSE 115 mg/dl (70-220); HDL CHOLESTEROL 18 mg/dl (33-92); LDL CHOLESTEROL,CALCULATED 44 mg/dl; MAGNESIUM 1.5 mg/dl (1.7-2.5); PHOSPHORUS 2.8 mg/dl (2.5-4.9); POTASSIUM 3.2 mmol/L (3.5-5.1); SODIUM 144 mmol/L (135-144); TOTAL PROTEIN 6.9 g/dl (6.1-8.1); TRIGLYCERIDES 123 mg/dl (0-149)
[2018-07-23 06:03] LABS: CREATINE KINASE 456 IU/L (23-200)
[2018-07-23 06:10] LABS: CK INDEX 8.4
[2018-07-23] MEDS: TRIHEXYPHENIDYL 5 MG TAB PO (10:06)
[2018-07-23] MEDS: DULOXETINE 30 MG CAP DR PO (10:06)
[2018-07-23] MEDS: MEMANTINE 10 MG TAB PO ×2 (10:07→20:34)
[2018-07-23] MEDS: ASPIRIN 81 MG TAB PO (10:07)
[2018-07-23] MEDS: DOCUSATE SODIUM 250 MG CAP PO ×2 (10:07→20:34)
[2018-07-23] MEDS: POTASSIUM CHLORIDE (SR) 20 MEQ TAB PO (10:07)
[2018-07-23] MEDS: LINAGLIPTIN 5 MG TABLET PO (10:07)
[2018-07-23] MEDS: OLOPATADINE 0.2% (ONCE A DAY) OPHTH DROP 2.5 ML BOTH EYES (10:07)
[2018-07-23] MEDS: MAGNESIUM SULFATE 3 GM in DEXTROSE 5% 100 ML IVPB (11:41)
[2018-07-23] MEDS ORDERED: morphine LIQ (10 MG/5 ML) CUP PO (14:30)
[2018-07-23] MEDS: SOD FERRIC GLUC COMPLX 125 MG in SOD CHLORIDE 0.9% 100 ML IVPB (15:32)
[2018-07-23] MEDS: ATORVASTATIN 80 MG TAB PO (20:34)
[2018-07-24] MEDS: PANTOPRAZOLE (EC) 40 MG TAB PO (05:49)
[2018-07-24 06:10] LABS: ADD MAN DIFF? NO
[2018-07-24 06:33] LABS: WHITE BLOOD COUNT 9.3 10^3/ul (4.8-10.8)
[2018-07-24 06:33] LABS: BASOPHIL # 0.1 10^3/ul (0.0-0.1); BASOPHILS % 0.6 % (0.0-2.0); EOSINOPHILS # 0.2 10^3/ul (0.0-0.5); HEMATOCRIT 30.5 % (37.0-47.0); LYMPHOCYTES # 1.4 10^3/ul (0.8-2.9); LYMPHOCYTES % 15.1 % (15.0-51.0); MEAN CORPUSCULAR HEMOGLOBIN 28.6 pg (29.0-33.0); MEAN CORPUSCULAR HGB CONC 32.8 g/dl (32.0-37.0); MEAN CORPUSCULAR VOLUME 87.1 fl (82.0-101.0); MEAN PLATELET VOLUME 9.9 fl (7.4-10.4); MONOCYTE # 0.8 10^3/ul (0.3-0.9); MONOCYTES % 8.1 % (0.0-11.0); NEUTROPHIL # 6.8 10^3/ul (1.6-7.5); NEUTROPHILS % 73.3 % (39.0-77.0); PLATELET COUNT 241 10^3/UL (140-415); RED CELL DISTRIBUTION WIDTH 16.6 % (11.5-14.5)
[2018-07-24 06:52] LABS: ANION GAP 11 (5-13); BLOOD UREA NITROGEN 26 mg/dl (7-20); CALCIUM 8.7 mg/dl (8.4-10.2); CARBON DIOXIDE 22 mmol/L (21-31); CHLORIDE 110 mmol/L (97-110); CREATININE 0.84 mg/dl (0.44-1.00); GLUCOSE 117 mg/dl (70-220); MAGNESIUM 2.2 mg/dl (1.7-2.5); POTASSIUM 3.6 mmol/L (3.5-5.1); SODIUM 143 mmol/L (135-144)
[2018-07-24] MEDS: DOCUSATE SODIUM 250 MG CAP PO (08:20)
[2018-07-24] MEDS: ASPIRIN 81 MG TAB PO (08:20)
[2018-07-24] MEDS: TRIHEXYPHENIDYL 5 MG TAB PO (08:20)
[2018-07-24] MEDS: MEMANTINE 10 MG TAB PO (08:20)
[2018-07-24] MEDS: DULOXETINE 30 MG CAP DR PO (08:20)
[2018-07-24] MEDS: LINAGLIPTIN 5 MG TABLET PO (08:20)
[2018-07-24] MEDS: OLOPATADINE 0.2% (ONCE A DAY) OPHTH DROP 2.5 ML BOTH EYES (08:21)
[2018-07-24] MEDS: SOD FERRIC GLUC COMPLX 125 MG in SOD CHLORIDE 0.9% 100 ML IVPB (13:38)
[2018-07-24 16:47] LABS: HAPTOGLOBIN 302 mg/dL (43-212)
[2018-07-26 23:43] LABS: ERYTHROPOIETIN 148.9 mIU/mL (2.6-18.5)
[2018-07-29] MEDS ORDERED: ALENDRONATE 70 MG TAB PO (07:00)
== END 2018-07-24 15:07 | disposition home health service (06) | DRG 281 ==
LOC: E/R 04:26 → 6WM 06:09
PROC: 30233N1 Transfusion of Nonautologous Red Blood Cells into Peripheral Vein, Percutaneous Approach (ICD-10-PCS; principal; 2018-07-22)
DX: I21.4 Non-ST elevation (NSTEMI) myocardial infarction (principal); D62 Acute posthemorrhagic anemia; N17.9 Acute kidney failure, unspecified; G30.9 Alzheimer's disease, unspecified; F02.80 Dementia in other diseases classified elsewhere, unspecified severity, without behavioral disturbance, psychotic disturbance, mood disturbance, and anxiety; J45.909 Unspecified asthma, uncomplicated; E78.5 Hyperlipidemia, unspecified; Z66 Do not resuscitate; F41.9 Anxiety disorder, unspecified; K21.9 Gastro-esophageal reflux disease without esophagitis; I35.0 Nonrheumatic aortic (valve) stenosis; I27.20 Pulmonary hypertension, unspecified; I25.10 Atherosclerotic heart disease of native coronary artery without angina pectoris; E11.22 Type 2 diabetes mellitus with diabetic chronic kidney disease; I12.9 Hypertensive chronic kidney disease with stage 1 through stage 4 chronic kidney disease, or unspecified chronic kidney disease; N18.9 Chronic kidney disease, unspecified; Z87.891 Personal history of nicotine dependence; Z95.5 Presence of coronary angioplasty implant and graft
CPT/HCPCS: 36415; 36430; 71045; 76775; 80048; 80053; 80061; 82550; 82553; 82607; 82668; 82728; 82746; 83010; 83036; 83540; 83735; 83880; 84100; 84443; 84484; 85025; 85045; 86850; 86870; 86900; 86901; 86920; 87081; 93005; 93306; 99285-25

== ENCOUNTER 2018-07-27 15:53 | Inpatient (IN) | payer MEDICARE, OTHER ==
[2018-07-27] MEDS ORDERED: FENTAnyl 50 MCG/ML VIAL (16:09)
[2018-07-27] MEDS: SOD CHLORIDE 0.9% 1,000 ML IV (16:13)
[2018-07-27 16:15] LABS: WHITE BLOOD COUNT 11.8 10^3/ul (4.8-10.8)
[2018-07-27 16:15] LABS: ABNORMAL IP MESSAGE 1; HEMATOCRIT 19.5 % (37.0-47.0); MEAN CORPUSCULAR HEMOGLOBIN 29.3 pg (29.0-33.0); MEAN CORPUSCULAR HGB CONC 30.8 g/dl (32.0-37.0); MEAN CORPUSCULAR VOLUME 95.1 fl (82.0-101.0); MEAN PLATELET VOLUME 10.3 fl (7.4-10.4); PLATELET COUNT 227 10^3/UL (140-415); RED BLOOD COUNT 2.05 10^6/ul (4.20-5.40); RED CELL DISTRIBUTION WIDTH 18.9 % (11.5-14.5)
[2018-07-27 16:23] LABS: POSITIVE DIFF @See below
[2018-07-27 16:25] LABS: ADD MAN DIFF? YES
[2018-07-27] MEDS: FENTAnyl 50 MCG/ML VIAL IV (16:28)
[2018-07-27 16:55] LABS: ANION GAP 13 (5-13); BLOOD UREA NITROGEN 55 mg/dl (7-20); CALCIUM 7.9 mg/dl (8.4-10.2); CARBON DIOXIDE 15 mmol/L (21-31); CHLORIDE 110 mmol/L (97-110); CREATININE 1.38 mg/dl (0.44-1.00); GLUCOSE 171 mg/dl (70-220); POTASSIUM 4.3 mmol/L (3.5-5.1); SODIUM 138 mmol/L (135-144)
[2018-07-27] MEDS ORDERED: PANTOPRAZOLE 40 MG INJ (17:21)
[2018-07-27 17:23] LABS: AHG CROSSMATCH 1 4
[2018-07-27 17:38] LABS: BAND NEUTROPHILS #M 0.2 10^3/ul (0.0-0.6); BAND NEUTROPHILS % (M) 2 % (0-4); BASOPHIL #M 0.1 10^3/ul (0.0-0.0); BASOPHILS % (M) 1 % (0-2); BURR CELLS 2+ (0-0); EOSINOPHILS % (M) 1 % (0-7); LYMPHOCYTES #M 2.7 10^3/ul (0.8-2.9); LYMPHOCYTES % (M) 23 % (15-51); MONOCYTE #M 0.9 10^3/ul (0.3-0.9); MONOCYTES % (M) 8 % (0-11); PLATELET ESTIMATE NORMAL; POIKILOCYTOSIS 2+ (0-0); SEG NEUT #M 7.7 10^3/ul (1.6-7.5); SEGMENTED NEUTROPHILS (M) % 65 % (39-77); SMUDGE%M 6 % (0-0)
[2018-07-27] MEDS: PANTOPRAZOLE IV 80 MG in SOD CHLORIDE 0.9% 100 ML IVPB (17:47)
[2018-07-27] MEDS ORDERED: traMADol 50 MG TAB PO (18:00)
[2018-07-27] MEDS ORDERED: ACETAMINOPHEN/CODEINE #3 TAB PO (18:00)
[2018-07-27] MEDS ORDERED: ONDANSETRON 4 MG INJ IV (18:00)
[2018-07-27] MEDS ORDERED: NITROGLYCERIN (SL) 0.4 MG TAB SL (18:00)
[2018-07-27] MEDS ORDERED: FENTAnyl 50 MCG/ML VIAL IV (18:30)
[2018-07-27] MEDS: FUROSEMIDE 20 MG INJ IV (19:00)
[2018-07-27 19:21] LABS: LACTATE DEHYDROGENASE 622 IU/L (313-618)
[2018-07-27] MEDS ORDERED: DEXTROSE 50% 50 ML SYRINGE IV ×2 (20:00)
[2018-07-27] MEDS ORDERED: GLUCOSE GEL 15 GRAM TUBE PO ×2 (20:00)
[2018-07-27] MEDS ORDERED: GLUCOSE GEL 15 GRAM TUBE BUCCAL (20:00)
[2018-07-27] MEDS ORDERED: GLUCAGON 1 MG INJ IM (20:00)
[2018-07-27 20:33] LABS: FOLATE 8.2 ng/ml (2.8-20.0)
[2018-07-27] MEDS: MEMANTINE 10 MG TAB PO (21:00)
[2018-07-27] MEDS ORDERED: ATORVASTATIN 40 MG TAB PO (21:00)
[2018-07-27] MEDS ORDERED: PANTOPRAZOLE 40 MG INJ IV (21:00)
[2018-07-27] MEDS: INSULIN ASPART [NOVOLOG] 3 ML PEN SC (21:00)
[2018-07-27] MEDS: ATORVASTATIN 40 MG TAB PO (21:00)
[2018-07-27] MEDS: DOCUSATE SODIUM 250 MG CAP PO (21:00)
[2018-07-27] MEDS: LIDOCAINE 5% PATCH TD (22:10)
[2018-07-27] MEDS: QUETIAPINE 25 MG TAB PO (22:33)
[2018-07-27] MEDS: CYANOCOBALAMIN 1000 MCG INJ IM (22:34)
[2018-07-27] MEDS: SOD FERRIC GLUC COMPLX 125 MG in SOD CHLORIDE 0.9% 100 ML IVPB (23:10)
[2018-07-28] MEDS: ALBUTEROL 0.083% (NEB) 2.5 MG/3 ML AMP HHN ×2 (04:18→08:24)
[2018-07-28] MEDS: LORAZEPAM 4 MG/ML VIAL IV (04:58)
[2018-07-28] MEDS ORDERED: NORepinephrine 8MG/250 ML (PMX 250 ML IV (05:00)
[2018-07-28 05:09] LABS: ADD MAN DIFF? NO
[2018-07-28 05:17] LABS: BASOPHIL # 0.1 10^3/ul (0.0-0.1); BASOPHILS % 0.5 % (0.0-2.0); EOSINOPHILS # 0.4 10^3/ul (0.0-0.5); EOSINOPHILS % 2.9 % (0.0-7.0); HEMATOCRIT 33.6 % (37.0-47.0); HEMOGLOBIN 10.9 g/dl (12.0-16.0); LYMPHOCYTES # 2.1 10^3/ul (0.8-2.9); LYMPHOCYTES % 14.5 % (15.0-51.0); MEAN CORPUSCULAR HEMOGLOBIN 29.3 pg (29.0-33.0); MEAN CORPUSCULAR HGB CONC 32.4 g/dl (32.0-37.0); MEAN CORPUSCULAR VOLUME 90.3 fl (82.0-101.0); MONOCYTE # 0.7 10^3/ul (0.3-0.9); MONOCYTES % 4.9 % (0.0-11.0); NEUTROPHIL # 11.2 10^3/ul (1.6-7.5); NEUTROPHILS % 75.4 % (39.0-77.0); PLATELET COUNT 229 10^3/UL (140-415); RED BLOOD COUNT 3.72 10^6/ul (4.20-5.40); RED CELL DISTRIBUTION WIDTH 18.1 % (11.5-14.5)
[2018-07-28 05:17] LABS: WHITE BLOOD COUNT 14.8 10^3/ul (4.8-10.8)
[2018-07-28 05:31] LABS: ALBUMIN 3.3 g/dl (3.3-4.9); ANION GAP 9 (5-13); BLOOD UREA NITROGEN 48 mg/dl (7-20); CALCIUM 7.7 mg/dl (8.4-10.2); CARBON DIOXIDE 16 mmol/L (21-31); CHLORIDE 113 mmol/L (97-110); CREATININE 1.19 mg/dl (0.44-1.00); GLUCOSE 114 mg/dl (70-220); MAGNESIUM 2.1 mg/dl (1.7-2.5); PHOSPHORUS 4.5 mg/dl (2.5-4.9); POTASSIUM 4.1 mmol/L (3.5-5.1); SODIUM 138 mmol/L (135-144)
[2018-07-28] MEDS: PANTOPRAZOLE 40 MG INJ IV ×2 (05:40→17:16)
[2018-07-28] MEDS: INSULIN ASPART [NOVOLOG] 3 ML PEN SC ×5 (07:35→21:00)
[2018-07-28] MEDS: QUETIAPINE 25 MG TAB PO ×2 (08:31→21:00)
[2018-07-28] MEDS: DOCUSATE SODIUM 250 MG CAP PO ×2 (08:31→21:00)
[2018-07-28] MEDS: TRIHEXYPHENIDYL 5 MG TAB PO (08:31)
[2018-07-28] MEDS: DULOXETINE 30 MG CAP DR PO (08:32)
[2018-07-28] MEDS: CYANOCOBALAMIN 1000 MCG INJ IM (08:32)
[2018-07-28] MEDS: ASPIRIN (EC) 81 MG TAB PO (08:32)
[2018-07-28] MEDS: OLOPATADINE 0.2% (ONCE A DAY) OPHTH DROP 2.5 ML BOTH EYES (08:32)
[2018-07-28] MEDS: FLUTICASONE/VILANTEROL 100-25 INH (08:32)
[2018-07-28] MEDS: LIDOCAINE 5% PATCH TD (08:33)
[2018-07-28] MEDS: MEMANTINE 10 MG TAB PO ×2 (08:34→21:00)
[2018-07-28] MEDS: FUROSEMIDE 20 MG INJ IV (10:13)
[2018-07-28] MEDS: ALPRAZOLAM 0.25 MG TAB PO (10:30)
[2018-07-28] MEDS ORDERED: morphine 2 MG INJ (15:09)
[2018-07-28] MEDS: SOD FERRIC GLUC COMPLX 125 MG in SOD CHLORIDE 0.9% 100 ML IVPB (15:11)
[2018-07-28] MEDS: morphine SULFATE/PF (2 MG/2 ML) SYG IV (15:12)
[2018-07-28] MEDS: IOHEXOL 14.3 MG(I)/ML (ADULT) BTL PO (18:00)
[2018-07-28 20:16] LABS: ERYTHROPOIETIN 221.4 mIU/mL (2.6-18.5)
[2018-07-28] MEDS ORDERED: QUETIAPINE 25 MG TAB PO (21:00)
[2018-07-28] MEDS: HYDROCODONE/APAP (5/325) TAB PO (21:34)
[2018-07-28] MEDS: ATORVASTATIN 40 MG TAB PO (21:34)
[2018-07-29 05:20] LABS: ADD MAN DIFF? NO
[2018-07-29 05:28] LABS: BASOPHIL # 0.1 10^3/ul (0.0-0.1); BASOPHILS % 0.5 % (0.0-2.0); EOSINOPHILS # 0.3 10^3/ul (0.0-0.5); EOSINOPHILS % 2.9 % (0.0-7.0); HEMATOCRIT 32.1 % (37.0-47.0); HEMOGLOBIN 10.5 g/dl (12.0-16.0); LYMPHOCYTES # 1.1 10^3/ul (0.8-2.9); LYMPHOCYTES % 9.4 % (15.0-51.0); MEAN CORPUSCULAR HEMOGLOBIN 29.7 pg (29.0-33.0); MEAN CORPUSCULAR HGB CONC 32.7 g/dl (32.0-37.0); MEAN CORPUSCULAR VOLUME 90.9 fl (82.0-101.0); MEAN PLATELET VOLUME 9.8 fl (7.4-10.4); MONOCYTE # 0.7 10^3/ul (0.3-0.9); MONOCYTES % 5.9 % (0.0-11.0); NEUTROPHIL # 9.6 10^3/ul (1.6-7.5); NEUTROPHILS % 80.5 % (39.0-77.0); PLATELET COUNT 271 10^3/UL (140-415); RED BLOOD COUNT 3.53 10^6/ul (4.20-5.40)
[2018-07-29 05:28] LABS: WHITE BLOOD COUNT 11.9 10^3/ul (4.8-10.8)
[2018-07-29 06:00] LABS: ANION GAP 12 (5-13); BLOOD UREA NITROGEN 30 mg/dl (7-20); CARBON DIOXIDE 19 mmol/L (21-31); CHLORIDE 113 mmol/L (97-110); GLUCOSE 111 mg/dl (70-220); PHOSPHORUS 2.9 mg/dl (2.5-4.9); POTASSIUM 3.8 mmol/L (3.5-5.1); SODIUM 144 mmol/L (135-144)
[2018-07-29] MEDS: PANTOPRAZOLE 40 MG INJ IV ×2 (06:05→18:17)
[2018-07-29] MEDS: INSULIN ASPART [NOVOLOG] 3 ML PEN SC ×4 (08:00→21:00)
[2018-07-29] MEDS: IOHEXOL 350MG/ML 50 ML BTL (09:16)
[2018-07-29] MEDS: BARIUM SULFATE 0.1% 450 ML BTL (VOLUMEN) PO ×3 (09:31)
[2018-07-29] MEDS: IOHEXOL 100 ML (10:30)
[2018-07-29] MEDS: SOD CHLORIDE 0.9% 100 ML (10:31)
[2018-07-29] MEDS: DOCUSATE SODIUM 100 MG CAP PO ×2 (12:30→21:00)
[2018-07-29] MEDS: LIDOCAINE 5% PATCH TD (13:05)
[2018-07-29] MEDS: FLUTICASONE/VILANTEROL 100-25 INH (13:05)
[2018-07-29] MEDS: OLOPATADINE 0.2% (ONCE A DAY) OPHTH DROP 2.5 ML BOTH EYES (13:06)
[2018-07-29] MEDS: MEMANTINE 10 MG TAB PO ×2 (13:06→21:00)
[2018-07-29] MEDS: TRIHEXYPHENIDYL 5 MG TAB PO (13:06)
[2018-07-29] MEDS: DULOXETINE 30 MG CAP DR PO (13:07)
[2018-07-29] MEDS: QUETIAPINE 25 MG TAB PO ×2 (13:07→21:00)
[2018-07-29] MEDS: ASPIRIN (EC) 81 MG TAB PO (13:08)
[2018-07-29] MEDS: DOCUSATE SODIUM 250 MG CAP PO ×2 (13:08→21:50)
[2018-07-29] MEDS: SOD FERRIC GLUC COMPLX 125 MG in SOD CHLORIDE 0.9% 100 ML IVPB (14:00)
[2018-07-29] MEDS: DILTIAZEM 25 MG INJ IV (14:06)
[2018-07-29] MEDS: GLUCAGON 1 MG INJ (15:39)
[2018-07-29] MEDS: CYANOCOBALAMIN 1000 MCG INJ IM (15:40)
[2018-07-29] MEDS ORDERED: DILTIAZEM 25 MG INJ IV (16:00)
[2018-07-29] MEDS: FUROSEMIDE 20 MG INJ IV (18:19)
[2018-07-29] MEDS: MAGNESIUM SULFATE 1 GM/D5W 100 ML IVPB (18:20)
[2018-07-29] MEDS: HYDROCODONE/APAP (5/325) TAB PO (21:50)
[2018-07-29] MEDS: ATORVASTATIN 40 MG TAB PO (21:50)
[2018-07-29] MEDS: METOPROLOL 25 MG TAB PO (21:54)
[2018-07-29] MEDS ORDERED: morphine LIQ (10 MG/5 ML) CUP PO (22:30)
[2018-07-30 05:50] LABS: ADD MAN DIFF? NO
[2018-07-30 05:55] LABS: WHITE BLOOD COUNT 7.7 10^3/ul (4.8-10.8)
[2018-07-30 05:55] LABS: BASOPHILS % 0.4 % (0.0-2.0); EOSINOPHILS # 0.3 10^3/ul (0.0-0.5); EOSINOPHILS % 3.8 % (0.0-7.0); HEMATOCRIT 30.2 % (37.0-47.0); HEMOGLOBIN 9.6 g/dl (12.0-16.0); LYMPHOCYTES % 12.6 % (15.0-51.0); MEAN CORPUSCULAR HEMOGLOBIN 29.1 pg (29.0-33.0); MEAN CORPUSCULAR HGB CONC 31.8 g/dl (32.0-37.0); MEAN CORPUSCULAR VOLUME 91.5 fl (82.0-101.0); MEAN PLATELET VOLUME 9.9 fl (7.4-10.4); MONOCYTE # 0.5 10^3/ul (0.3-0.9); NEUTROPHIL # 5.8 10^3/ul (1.6-7.5); NEUTROPHILS % 75.4 % (39.0-77.0); PLATELET COUNT 268 10^3/UL (140-415); RED CELL DISTRIBUTION WIDTH 19.1 % (11.5-14.5)
[2018-07-30] MEDS: PANTOPRAZOLE 40 MG INJ IV ×2 (05:59→18:05)
[2018-07-30 06:31] LABS: MAGNESIUM 2.1 mg/dl (1.7-2.5)
[2018-07-30 06:42] LABS: ANION GAP 7 (5-13); BLOOD UREA NITROGEN 22 mg/dl (7-20); CARBON DIOXIDE 21 mmol/L (21-31); CHLORIDE 112 mmol/L (97-110); CREATININE 0.89 mg/dl (0.44-1.00); SODIUM 140 mmol/L (135-144)
[2018-07-30 06:43] LABS: GLUCOSE 107 mg/dl (70-220)
[2018-07-30 07:29] LABS: POTASSIUM 4.2 mmol/L (3.5-5.1)
[2018-07-30] MEDS: INSULIN ASPART [NOVOLOG] 3 ML PEN SC ×4 (08:00→21:00)
[2018-07-30] MEDS: DOCUSATE SODIUM 250 MG CAP PO ×3 (09:00→21:33)
[2018-07-30] MEDS: LIDOCAINE 5% PATCH TD (09:46)
[2018-07-30] MEDS: DULOXETINE 30 MG CAP DR PO (09:47)
[2018-07-30] MEDS: TRIHEXYPHENIDYL 5 MG TAB PO (09:47)
[2018-07-30] MEDS: METOPROLOL 25 MG TAB PO ×3 (09:47→21:33)
[2018-07-30] MEDS: DOCUSATE SODIUM 100 MG CAP PO (09:48)
[2018-07-30] MEDS: QUETIAPINE 25 MG TAB PO ×2 (09:48→21:34)
[2018-07-30] MEDS: MEMANTINE 10 MG TAB PO ×2 (09:48→21:33)
[2018-07-30] MEDS: FUROSEMIDE 20 MG INJ IV ×2 (09:49→18:05)
[2018-07-30] MEDS: CYANOCOBALAMIN 1000 MCG INJ IM (09:49)
[2018-07-30] MEDS: FLUTICASONE/VILANTEROL 100-25 INH (09:50)
[2018-07-30] MEDS: OLOPATADINE 0.2% (ONCE A DAY) OPHTH DROP 2.5 ML BOTH EYES (09:50)
[2018-07-30] MEDS: SOD FERRIC GLUC COMPLX 125 MG in SOD CHLORIDE 0.9% 100 ML IVPB (14:00)
[2018-07-30] MEDS: ATORVASTATIN 40 MG TAB PO (21:38)
[2018-07-30] MEDS: ALPRAZOLAM 0.25 MG TAB PO (23:25)
[2018-07-31] MEDS ORDERED: HALOPERIDOL 5 MG INJ (01:13)
[2018-07-31] MEDS: HALOPERIDOL 5 MG INJ IM ×2 (01:24→03:07)
[2018-07-31] MEDS: LORAZEPAM 2 MG INJ IV (03:05)
[2018-07-31 06:06] LABS: ADD MAN DIFF? NO
[2018-07-31 06:08] LABS: BASOPHILS % 0.4 % (0.0-2.0); EOSINOPHILS # 0.4 10^3/ul (0.0-0.5); EOSINOPHILS % 4.9 % (0.0-7.0); HEMOGLOBIN 10.7 g/dl (12.0-16.0); LYMPHOCYTES # 1.4 10^3/ul (0.8-2.9); LYMPHOCYTES % 16.6 % (15.0-51.0); MEAN CORPUSCULAR HEMOGLOBIN 29.3 pg (29.0-33.0); MEAN CORPUSCULAR HGB CONC 32.4 g/dl (32.0-37.0); MEAN CORPUSCULAR VOLUME 90.4 fl (82.0-101.0); MEAN PLATELET VOLUME 9.5 fl (7.4-10.4); MONOCYTE # 0.7 10^3/ul (0.3-0.9); MONOCYTES % 8.9 % (0.0-11.0); NEUTROPHIL # 5.6 10^3/ul (1.6-7.5); NEUTROPHILS % 68.5 % (39.0-77.0); PLATELET COUNT 314 10^3/UL (140-415); RED BLOOD COUNT 3.65 10^6/ul (4.20-5.40); RED CELL DISTRIBUTION WIDTH 18.6 % (11.5-14.5)
[2018-07-31 06:08] LABS: WHITE BLOOD COUNT 8.2 10^3/ul (4.8-10.8)
[2018-07-31] MEDS: FUROSEMIDE 20 MG INJ IV ×2 (06:26→17:38)
[2018-07-31] MEDS: PANTOPRAZOLE 40 MG INJ IV ×2 (06:26→17:34)
[2018-07-31 06:50] LABS: MAGNESIUM 1.9 mg/dl (1.7-2.5)
[2018-07-31 06:58] LABS: ANION GAP 12 (5-13); BLOOD UREA NITROGEN 19 mg/dl (7-20); CALCIUM 8.5 mg/dl (8.4-10.2); CARBON DIOXIDE 25 mmol/L (21-31); CHLORIDE 106 mmol/L (97-110); CREATININE 0.89 mg/dl (0.44-1.00); GLUCOSE 97 mg/dl (70-220); POTASSIUM 3.9 mmol/L (3.5-5.1); SODIUM 143 mmol/L (135-144)
[2018-07-31] MEDS: INSULIN ASPART [NOVOLOG] 3 ML PEN SC ×4 (08:00→20:42)
[2018-07-31] MEDS: QUETIAPINE 25 MG TAB PO ×2 (08:16→20:17)
[2018-07-31] MEDS: DULOXETINE 30 MG CAP DR PO (08:16)
[2018-07-31] MEDS: MEMANTINE 10 MG TAB PO ×2 (08:16→20:17)
[2018-07-31] MEDS: DOCUSATE SODIUM 250 MG CAP PO ×2 (08:16→20:18)
[2018-07-31] MEDS: TRIHEXYPHENIDYL 5 MG TAB PO (08:16)
[2018-07-31] MEDS: METOPROLOL 25 MG TAB PO ×3 (08:18→20:41)
[2018-07-31] MEDS: CYANOCOBALAMIN 1000 MCG INJ IM (08:18)
[2018-07-31] MEDS: OLOPATADINE 0.2% (ONCE A DAY) OPHTH DROP 2.5 ML BOTH EYES (08:19)
[2018-07-31] MEDS: FLUTICASONE/VILANTEROL 100-25 INH (08:19)
[2018-07-31] MEDS: LIDOCAINE 5% PATCH TD (08:27)
[2018-07-31] MEDS: SOD FERRIC GLUC COMPLX 125 MG in SOD CHLORIDE 0.9% 100 ML IVPB (13:25)
[2018-07-31] MEDS: ATORVASTATIN 40 MG TAB PO (20:17)
[2018-08-01] MEDS: METOPROLOL 25 MG TAB PO ×3 (05:38→20:30)
[2018-08-01] MEDS: PANTOPRAZOLE 40 MG INJ IV ×2 (05:40→17:00)
[2018-08-01] MEDS: FUROSEMIDE 20 MG INJ IV ×3 (05:41→17:00)
[2018-08-01 06:19] LABS: ADD MAN DIFF? NO
[2018-08-01 06:27] LABS: BASOPHILS % 0.4 % (0.0-2.0); EOSINOPHILS # 0.3 10^3/ul (0.0-0.5); EOSINOPHILS % 4.1 % (0.0-7.0); HEMATOCRIT 36.3 % (37.0-47.0); HEMOGLOBIN 11.7 g/dl (12.0-16.0); LYMPHOCYTES # 1.2 10^3/ul (0.8-2.9); LYMPHOCYTES % 14.6 % (15.0-51.0); MEAN CORPUSCULAR HEMOGLOBIN 29.5 pg (29.0-33.0); MEAN CORPUSCULAR HGB CONC 32.2 g/dl (32.0-37.0); MEAN CORPUSCULAR VOLUME 91.4 fl (82.0-101.0); MEAN PLATELET VOLUME 9.7 fl (7.4-10.4); MONOCYTE # 0.7 10^3/ul (0.3-0.9); MONOCYTES % 9.2 % (0.0-11.0); NEUTROPHIL # 5.7 10^3/ul (1.6-7.5); NEUTROPHILS % 71.1 % (39.0-77.0); PLATELET COUNT 337 10^3/UL (140-415); RED BLOOD COUNT 3.97 10^6/ul (4.20-5.40); RED CELL DISTRIBUTION WIDTH 18.4 % (11.5-14.5)
[2018-08-01] MEDS: INSULIN ASPART [NOVOLOG] 3 ML PEN SC ×4 (08:00→21:00)
[2018-08-01] MEDS: TRIHEXYPHENIDYL 5 MG TAB PO (09:04)
[2018-08-01] MEDS: DULOXETINE 30 MG CAP DR PO (09:04)
[2018-08-01] MEDS: DOCUSATE SODIUM 250 MG CAP PO ×2 (09:04→20:30)
[2018-08-01] MEDS: QUETIAPINE 25 MG TAB PO ×2 (09:05→20:29)
[2018-08-01] MEDS: CYANOCOBALAMIN 1000 MCG INJ IM (09:05)
[2018-08-01] MEDS: MEMANTINE 10 MG TAB PO ×2 (09:05→20:30)
[2018-08-01] MEDS: LIDOCAINE 5% PATCH TD (09:05)
[2018-08-01] MEDS: FLUTICASONE/VILANTEROL 100-25 INH (09:16)
[2018-08-01] MEDS: OLOPATADINE 0.2% (ONCE A DAY) OPHTH DROP 2.5 ML BOTH EYES (09:27)
[2018-08-01] MEDS: ACETAMINOPHEN 325 MG TAB PO (17:00)
[2018-08-01] MEDS: ALPRAZOLAM 0.25 MG TAB PO (20:29)
[2018-08-01] MEDS: ATORVASTATIN 40 MG TAB PO (20:30)
[2018-08-02] MEDS: BISACODYL (EC) 5 MG TAB PO (05:21)
[2018-08-02] MEDS: METOPROLOL 25 MG TAB PO ×3 (05:21→20:19)
[2018-08-02] MEDS: PANTOPRAZOLE 40 MG INJ IV ×2 (05:24→18:01)
[2018-08-02] MEDS: FUROSEMIDE 20 MG INJ IV (05:25)
[2018-08-02 05:29] LABS: ADD MAN DIFF? NO
[2018-08-02 05:34] LABS: WHITE BLOOD COUNT 9.2 10^3/ul (4.8-10.8)
[2018-08-02 05:34] LABS: BASOPHILS % 0.4 % (0.0-2.0); EOSINOPHILS # 0.4 10^3/ul (0.0-0.5); EOSINOPHILS % 3.9 % (0.0-7.0); HEMATOCRIT 38.5 % (37.0-47.0); HEMOGLOBIN 12.2 g/dl (12.0-16.0); LYMPHOCYTES # 1.3 10^3/ul (0.8-2.9); LYMPHOCYTES % 14.1 % (15.0-51.0); MEAN CORPUSCULAR HEMOGLOBIN 28.7 pg (29.0-33.0); MEAN CORPUSCULAR HGB CONC 31.7 g/dl (32.0-37.0); MEAN CORPUSCULAR VOLUME 90.6 fl (82.0-101.0); MEAN PLATELET VOLUME 9.8 fl (7.4-10.4); MONOCYTE # 0.7 10^3/ul (0.3-0.9); MONOCYTES % 8.1 % (0.0-11.0); NEUTROPHIL # 6.7 10^3/ul (1.6-7.5); PLATELET COUNT 341 10^3/UL (140-415); RED BLOOD COUNT 4.25 10^6/ul (4.20-5.40); RED CELL DISTRIBUTION WIDTH 18.1 % (11.5-14.5)
[2018-08-02 06:02] LABS: ANION GAP 12 (5-13); BLOOD UREA NITROGEN 35 mg/dl (7-20); CALCIUM 9.3 mg/dl (8.4-10.2); CARBON DIOXIDE 26 mmol/L (21-31); CHLORIDE 105 mmol/L (97-110); CREATININE 1.43 mg/dl (0.44-1.00); GLUCOSE 130 mg/dl (70-220); POTASSIUM 3.3 mmol/L (3.5-5.1); SODIUM 143 mmol/L (135-144)
[2018-08-02 06:19] LABS: MAGNESIUM 1.8 mg/dl (1.7-2.5)
[2018-08-02] MEDS: INSULIN ASPART [NOVOLOG] 3 ML PEN SC ×4 (08:00→20:29)
[2018-08-02] MEDS: QUETIAPINE 25 MG TAB PO ×2 (08:46→20:16)
[2018-08-02] MEDS: DOCUSATE SODIUM 250 MG CAP PO ×2 (08:46→20:17)
[2018-08-02] MEDS: DULOXETINE 30 MG CAP DR PO (08:46)
[2018-08-02] MEDS: CYANOCOBALAMIN 1000 MCG INJ IM (08:46)
[2018-08-02] MEDS: MEMANTINE 10 MG TAB PO ×2 (08:46→20:17)
[2018-08-02] MEDS: TRIHEXYPHENIDYL 5 MG TAB PO (08:46)
[2018-08-02] MEDS: OLOPATADINE 0.2% (ONCE A DAY) OPHTH DROP 2.5 ML BOTH EYES (08:47)
[2018-08-02] MEDS: FLUTICASONE/VILANTEROL 100-25 INH (08:47)
[2018-08-02] MEDS: LIDOCAINE 5% PATCH TD (08:48)
[2018-08-02] MEDS: SOD CHLORIDE 0.9% 1,000 ML IV (11:40)
[2018-08-02] MEDS ORDERED: ONDANSETRON 4 MG INJ IV (15:30)
[2018-08-02] MEDS: PROPOFOL 20 ML (15:41)
[2018-08-02] MEDS: EPHEDrine SULFATE 50 MG/5 ML SYG (16:10)
[2018-08-02] MEDS: MAGNESIUM SULFATE 2 GM/50 ML 50 ML IVPB (18:02)
[2018-08-02] MEDS: ATORVASTATIN 40 MG TAB PO (20:17)
[2018-08-02] MEDS: ALPRAZOLAM 0.25 MG TAB PO (20:17)
[2018-08-03] MEDS: BISACODYL (EC) 5 MG TAB PO (06:01)
[2018-08-03] MEDS: METOPROLOL 25 MG TAB PO ×2 (06:01→13:19)
[2018-08-03] MEDS: PANTOPRAZOLE 40 MG INJ IV ×2 (06:01→17:05)
[2018-08-03 06:10] LABS: ADD MAN DIFF? NO
[2018-08-03 06:12] LABS: WHITE BLOOD COUNT 11.1 10^3/ul (4.8-10.8)
[2018-08-03 06:12] LABS: BASOPHIL # 0.1 10^3/ul (0.0-0.1); BASOPHILS % 0.5 % (0.0-2.0); EOSINOPHILS # 0.3 10^3/ul (0.0-0.5); EOSINOPHILS % 3.1 % (0.0-7.0); HEMATOCRIT 39.1 % (37.0-47.0); HEMOGLOBIN 12.2 g/dl (12.0-16.0); LYMPHOCYTES % 9.2 % (15.0-51.0); MEAN CORPUSCULAR HEMOGLOBIN 29.4 pg (29.0-33.0); MEAN CORPUSCULAR HGB CONC 31.2 g/dl (32.0-37.0); MEAN CORPUSCULAR VOLUME 94.2 fl (82.0-101.0); MEAN PLATELET VOLUME 9.6 fl (7.4-10.4); MONOCYTE # 0.7 10^3/ul (0.3-0.9); MONOCYTES % 6.6 % (0.0-11.0); NEUTROPHIL # 8.9 10^3/ul (1.6-7.5); NEUTROPHILS % 80.1 % (39.0-77.0); PLATELET COUNT 283 10^3/UL (140-415); RED BLOOD COUNT 4.15 10^6/ul (4.20-5.40); RED CELL DISTRIBUTION WIDTH 17.9 % (11.5-14.5)
[2018-08-03] MEDS: SOD CHLORIDE 0.9% 1,000 ML IV (07:30)
[2018-08-03] MEDS: INSULIN ASPART [NOVOLOG] 3 ML PEN SC ×4 (08:00→21:00)
[2018-08-03] MEDS: TRIHEXYPHENIDYL 5 MG TAB PO (09:10)
[2018-08-03] MEDS: QUETIAPINE 25 MG TAB PO ×2 (09:10→21:48)
[2018-08-03] MEDS: MEMANTINE 10 MG TAB PO ×2 (09:10→21:48)
[2018-08-03] MEDS: DULOXETINE 30 MG CAP DR PO (09:10)
[2018-08-03] MEDS: CYANOCOBALAMIN 1000 MCG INJ IM (09:10)
[2018-08-03] MEDS: DOCUSATE SODIUM 250 MG CAP PO ×2 (09:10→20:21)
[2018-08-03] MEDS: FLUTICASONE/VILANTEROL 100-25 INH (09:11)
[2018-08-03] MEDS: OLOPATADINE 0.2% (ONCE A DAY) OPHTH DROP 2.5 ML BOTH EYES (09:11)
[2018-08-03] MEDS: LIDOCAINE 5% PATCH TD (09:34)
[2018-08-03] MEDS: SOD CHLORIDE 0.9% 500 ML IV (15:38)
[2018-08-03 19:49] LABS: ADD MAN DIFF? NO
[2018-08-03 19:51] LABS: BASOPHIL # 0.1 10^3/ul (0.0-0.1); BASOPHILS % 0.4 % (0.0-2.0); EOSINOPHILS # 0.2 10^3/ul (0.0-0.5); EOSINOPHILS % 1.5 % (0.0-7.0); HEMATOCRIT 32.8 % (37.0-47.0); HEMOGLOBIN 10.2 g/dl (12.0-16.0); LYMPHOCYTES # 1.3 10^3/ul (0.8-2.9); MEAN CORPUSCULAR HEMOGLOBIN 28.9 pg (29.0-33.0); MEAN CORPUSCULAR HGB CONC 31.1 g/dl (32.0-37.0); MEAN CORPUSCULAR VOLUME 92.9 fl (82.0-101.0); MEAN PLATELET VOLUME 9.4 fl (7.4-10.4); MONOCYTE # 0.8 10^3/ul (0.3-0.9); MONOCYTES % 6.3 % (0.0-11.0); NEUTROPHIL # 10.4 10^3/ul (1.6-7.5); NEUTROPHILS % 81.4 % (39.0-77.0); PLATELET COUNT 251 10^3/UL (140-415); RED BLOOD COUNT 3.53 10^6/ul (4.20-5.40); RED CELL DISTRIBUTION WIDTH 17.7 % (11.5-14.5)
[2018-08-03 19:51] LABS: WHITE BLOOD COUNT 12.7 10^3/ul (4.8-10.8)
[2018-08-03 20:13] LABS: ANION GAP 12 (5-13); BLOOD UREA NITROGEN 33 mg/dl (7-20); CALCIUM 8.5 mg/dl (8.4-10.2); CARBON DIOXIDE 28 mmol/L (21-31); CHLORIDE 103 mmol/L (97-110); CREATININE 1.26 mg/dl (0.44-1.00); GLUCOSE 159 mg/dl (70-220); POTASSIUM 3.2 mmol/L (3.5-5.1); SODIUM 143 mmol/L (135-144)
[2018-08-03] MEDS ORDERED: POTASSIUM CHLORIDE 20 MEQ POWDER FOR ORAL SOLN PO ×2 (21:00→21:30)
[2018-08-03] MEDS: ATORVASTATIN 40 MG TAB PO (21:49)
[2018-08-03] MEDS: POTASSIUM CHLORIDE (SR) 20 MEQ TAB PO (21:49)
[2018-08-04] MEDS: SOD CHLORIDE 0.9% 1,000 ML IV (03:30)
[2018-08-04 05:57] LABS: ADD MAN DIFF? NO
[2018-08-04 05:59] LABS: BASOPHIL # 0.1 10^3/ul (0.0-0.1); BASOPHILS % 0.5 % (0.0-2.0); EOSINOPHILS # 0.4 10^3/ul (0.0-0.5); EOSINOPHILS % 3.9 % (0.0-7.0); HEMATOCRIT 32.6 % (37.0-47.0); HEMOGLOBIN 10.1 g/dl (12.0-16.0); LYMPHOCYTES # 1.4 10^3/ul (0.8-2.9); LYMPHOCYTES % 15.1 % (15.0-51.0); MEAN CORPUSCULAR HEMOGLOBIN 29.3 pg (29.0-33.0); MEAN CORPUSCULAR VOLUME 94.5 fl (82.0-101.0); MEAN PLATELET VOLUME 10.1 fl (7.4-10.4); MONOCYTE # 0.7 10^3/ul (0.3-0.9); MONOCYTES % 7.4 % (0.0-11.0); NEUTROPHIL # 6.9 10^3/ul (1.6-7.5); NEUTROPHILS % 72.7 % (39.0-77.0); PLATELET COUNT 247 10^3/UL (140-415); RED BLOOD COUNT 3.45 10^6/ul (4.20-5.40); RED CELL DISTRIBUTION WIDTH 17.7 % (11.5-14.5)
[2018-08-04 05:59] LABS: WHITE BLOOD COUNT 9.4 10^3/ul (4.8-10.8)
[2018-08-04] MEDS: PANTOPRAZOLE 40 MG INJ IV (06:16)
[2018-08-04 06:37] LABS: ANION GAP 9 (5-13); BLOOD UREA NITROGEN 29 mg/dl (7-20); CALCIUM 8.5 mg/dl (8.4-10.2); CARBON DIOXIDE 29 mmol/L (21-31); CHLORIDE 107 mmol/L (97-110); CREATININE 1.09 mg/dl (0.44-1.00); GLUCOSE 104 mg/dl (70-220); PHOSPHORUS 3.5 mg/dl (2.5-4.9); POTASSIUM 4.2 mmol/L (3.5-5.1); SODIUM 145 mmol/L (135-144)
[2018-08-04] MEDS: INSULIN ASPART [NOVOLOG] 3 ML PEN SC ×2 (07:59→11:53)
[2018-08-04] MEDS: DOCUSATE SODIUM 250 MG CAP PO (09:00)
[2018-08-04] MEDS: TRIHEXYPHENIDYL 5 MG TAB PO (09:09)
[2018-08-04] MEDS: DULOXETINE 30 MG CAP DR PO (09:09)
[2018-08-04] MEDS: MEMANTINE 10 MG TAB PO (09:10)
[2018-08-04] MEDS: QUETIAPINE 25 MG TAB PO (09:10)
[2018-08-04] MEDS: FLUTICASONE/VILANTEROL 100-25 INH (09:13)
[2018-08-04] MEDS: OLOPATADINE 0.2% (ONCE A DAY) OPHTH DROP 2.5 ML BOTH EYES (09:13)
[2018-08-04] MEDS: LIDOCAINE 5% PATCH TD (09:24)
[2018-08-05] MEDS ORDERED: PANTOPRAZOLE (EC) 40 MG TAB PO (07:00)
== END 2018-08-04 15:43 | DRG 377 ==
LOC: E/R 15:53 → 6WM 07-28 17:30 → ICU 17:42
PROC: 0W3P8ZZ Control Bleeding in Gastrointestinal Tract, Via Natural or Artificial Opening Endoscopic (ICD-10-PCS; principal; 2018-08-02 15:00)
PROC: 30233N1 Transfusion of Nonautologous Red Blood Cells into Peripheral Vein, Percutaneous Approach (ICD-10-PCS; 2018-08-02 15:00)
DX: K31.811 Angiodysplasia of stomach and duodenum with bleeding (principal); I50.33 Acute on chronic diastolic (congestive) heart failure; N17.9 Acute kidney failure, unspecified; G93.40 Encephalopathy, unspecified; D62 Acute posthemorrhagic anemia; I47.1 Supraventricular tachycardia; D50.9 Iron deficiency anemia, unspecified; E87.6 Hypokalemia; E11.9 Type 2 diabetes mellitus without complications; G30.9 Alzheimer's disease, unspecified; F02.80 Dementia in other diseases classified elsewhere, unspecified severity, without behavioral disturbance, psychotic disturbance, mood disturbance, and anxiety; I35.0 Nonrheumatic aortic (valve) stenosis; I11.0 Hypertensive heart disease with heart failure; I25.10 Atherosclerotic heart disease of native coronary artery without angina pectoris; I27.20 Pulmonary hypertension, unspecified; I95.9 Hypotension, unspecified; J44.9 Chronic obstructive pulmonary disease, unspecified; M25.512 Pain in left shoulder; M25.511 Pain in right shoulder; R07.9 Chest pain, unspecified; Z66 Do not resuscitate; Z95.5 Presence of coronary angioplasty implant and graft; Z79.84 Long term (current) use of oral hypoglycemic drugs; Z79.82 Long term (current) use of aspirin
CPT/HCPCS: 36415; 36430; 71045; 74178; 80048; 80069; 82607; 82668; 82728; 82746; 82962; 83615; 83735; 84100; 84484; 85025; 86644; 86850; 86900; 86901; 86920; 87081; 92526; 92610; 93005; 94640; 94664; 96374; 99291-25